=== PATIENT | male | born 1995 | race Asian ===

== ENCOUNTER 2017-05-19 00:40 | Inpatient (IN) | payer OTHER ==
[~2017-05-19] VITALS: Ht 170.2 cm; Wt 72.9 kg
[2017-05-19] VITALS (18 sets, daily range): BP systolic 100–147; BP diastolic 59–83; PULSE 65–88; TEMP 36.9–37.2; O2SAT 96–100; Ht 170.2 cm; Wt 72.9 kg
[2017-05-19] MEDS ORDERED: SODIUM CHLORIDE 0.9% 1000ML 1,000 ML IV STA (01:14)
[2017-05-19] MEDS ORDERED: ONDANSETRON INJ 2 MG/ML 2 ML VIAL IV STA (01:18)
[2017-05-19] MEDS ORDERED: OPTIRAY 320 IV PRN (01:30)
[2017-05-19 01:36] LABS: BASO % 0.6 %; BASO ABS # 0.04 K/uL (0-0.2); COMPLETE YES; EOS % 3.7 %; HEMATOCRIT 44.2 % (42-52); IG% 0.4 %; LYMPH % 31.3 %; LYMPH ABS # 2.27 K/uL (1.2-3.4); MEAN CELL VOLUME 82.6 fL (80-100); MEAN CORPUSCULAR HEMOGLOBIN 28.4 pg (25-34); MEAN CORPUSCULAR HGB CONC 34.4 g/dl (32-36); MEAN PLATELET VOLUME 9.2 fL (7.4-10.4); MONO % 6.2 %; NEUT % 57.8 %; PLATELET COUNT 251 K/uL (130-400); RED BLOOD COUNT 5.35 M/uL (4.7-6.1); WHITE BLOOD COUNT 7.25 K/uL (4.8-10.8)
[2017-05-19 01:52] LABS: BUN/CREATININE RATIO 12.1 (10-20); CREATININE 1.03 mg/dl (0.60-1.40); PARTIAL THROMBOPLASTIN RATIO 1.1; PROTHROMBIN TIME (PATIENT) 10.4 SECONDS (9.0-12.0)
--- NOTE | 2017-05-19 02:49 | EMERGENCY ROOM VISIT NOTE ---
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 Patient states he was studying and working for an exam when he went to the bathroom and strained and had a brown bowel movement with bright red blood. Since then he has had straight bloody episodes of liquid from his rectum. He's had a hemorrhoid before. No history of bleeding like this in the past. Patient is currently down pain as discomfort, 3 out of 10 to the lower abdomen. Patient feels nauseous. Patient denies chest pain, dyspnea , fever, chills, vomiting, back pain. No recent antibiotics. No recent travel. He goes to [facility]. Review of Systems See HPI for pertinent positives & negatives. A total of 10 systems reviewed and were otherwise negative. Past Medical/Surgical History None Social History Smoking Status: Never Smoker Smokeless Tobacco Use: No Alcohol Use: none Drug Use: none Occupation Status: [employer] student Current/Historical Medications No Active Prescriptions or Reported Meds Physical Exam Vital Signs Date Time Temp Pulse Resp B/P (MAP) Pulse Ox O2 Delivery O2 Flow Rate FiO2 05/19/17 02:33 76 16 132/86 134/71 133/79 05/19/17 01:25 99 Room Air 05/19/17 01:00 37.1 103 16 149/101 95 Room Air Physical Exam VITALS: Vitals are noted on the nurse's note and reviewed by myself. Vital signs stable. GENERAL: Pleasant male anxious-appearing, in no acute distress, nondiaphoretic, well-developed well-nourished. SKIN: The skin was without rashes, erythema, edema, or bruising. There is no tenting of the skin. Capillary reflex less than 2 seconds. HEAD: Normocephalic atraumatic. EARS: External auditory canals clear, tympanic membranes pearly peralta without erythema or effusion bilaterally. EYES: Pupils equal round and reactive to light and accommodation. Conjunctivae without injection, sclerae without icterus. Extraocular movements intact. NOSE: Patent, turbinates without inflammation or discharge. MOUTH: Mucous membranes moist. Pharynx without erythema or exudate. Uvula midline. Airway patent. Tongue does not deviate. NECK: Supple without nuchal rigidity. No lymphadenopathy. No thyromegaly. Cervical spine is nontender. No JVD. HEART: Regular rate and rhythm without murmurs gallops or rubs. LUNGS: Clear to auscultation bilaterally without wheezes, rales or rhonchi. No dullness to percussion. No retractions or accessory muscle use. ABDOMEN: Positive bowel sounds x 4. Normal tympanic percussion. Soft, tender to palpation lower abdomen, no CVA tenderness, without masses or organomegaly. Joy sign negative. No guarding or rebound tenderness. Rectal exam: Nonthrombosed hemorrhoid at 6:00, bright red blood. [employer] Developer present. No fissures or tears. MUSCULOSKELETAL: No muscle atrophy, erythema, or edema noted. NEURO: Patient was alert and oriented to person place and time. Normal sensation to light and sharp touch. No focal neurological deficits. Medical Decision & Procedures Laboratory Results 05/19/17 01:24 Red Blood Count 5.35, Mean Corpuscular Volume 82.6, Mean Corpuscular Hemoglobin 28.4, Mean Corpuscular Hemoglobin Concent 34.4, Mean Platelet Volume 9.2, Neutrophils (%) (Auto) 57.8, Lymphocytes (%) (Auto) 31.3, Monocytes (%) (Auto) 6.2, Eosinophils (%) (Auto) 3.7, Basophils (%) (Auto) 0.6, Neutrophils # (Auto) 4.19, Lymphocytes # (Auto) 2.27, Monocytes # (Auto) 0.45, Eosinophils # (Auto) 0.27, Basophils # (Auto) 0.04 05/19/17 01:24 Test 05/19/17 01:24 White Blood Count 7.25 K/uL (4.8-10.8) Red Blood Count 5.35 M/uL (4.7-6.1) Hemoglobin 15.2 g/dL (14.0-18.0) Hematocrit 44.2 % (42-52) Mean Corpuscular Volume 82.6 fL (80-100) Mean Corpuscular Hemoglobin 28.4 pg (25-34) Mean Corpuscular Hemoglobin Concent 34.4 g/dl (32-36) Platelet Count 251 K/uL (130-400) Mean Platelet Volume 9.2 fL (7.4-10.4) Neutrophils (%) (Auto) 57.8 % Lymphocytes (%) (Auto) 31.3 % Monocytes (%) (Auto) 6.2 % Eosinophils (%) (Auto) 3.7 % Basophils (%) (Auto) 0.6 % Neutrophils # (Auto) 4.19 K/uL (1.4-6.5) Lymphocytes # (Auto) 2.27 K/uL (1.2-3.4) Monocytes # (Auto) 0.45 K/uL (0.11-0.59) Eosinophils # (Auto) 0.27 K/uL (0-0.5) Basophils # (Auto) 0.04 K/uL (0-0.2) RDW Standard Deviation 37.2 fL (36.4-46.3) RDW Coefficient of Variation 12.5 % (11.5-14.5) Immature Granulocyte % (Auto) 0.4 % Immature Granulocyte # (Auto) 0.03 K/uL (0.00-0.02) Prothrombin Time 10.4 SECONDS (9.0-12.0) Prothromb Time International Ratio 1.0 (0.9-1.1) Activated Partial Thromboplast Time 28.5 SECONDS (21.0-31.0) Partial Thromboplastin Ratio 1.1 Anion Gap 10.0 mmol/L (3-11) Est Creatinine Clear Calc Drug Dose 104.3 ml/min Estimated GFR () 118.1 Estimated GFR (Non- 101.9 BUN/Creatinine Ratio 12.1 (10-20) Calcium Level 9.0 mg/dl (8.5-10.1) Total Bilirubin 1.4 mg/dl (0.2-1) Direct Bilirubin 0.2 mg/dl (0-0.2) Aspartate Amino Transf (AST/SGOT) 17 U/L (15-37) Alanine Aminotransferase (ALT/SGPT) 40 U/L (12-78) Alkaline Phosphatase 81 U/L (45-117) Total Protein 7.4 gm/dl (6.4-8.2) Albumin 4.4 gm/dl (3.4-5.0) Lipase 109 U/L (73-393) Medications Administered Medications (Trade) Dose Ordered Sig/Viktoria Route Start Time Stop Time Status Last Admin Dose Admin Sodium Chloride 1,000 ml @ 999 mls/hr Q1H1M STAT IV 05/19/17 01:14 05/19/17 02:14 DC 05/19/17 01:22 999 MLS/HR Ondansetron HCl (Zofran Inj) 4 mg NOW STAT IV 05/19/17 01:18 05/19/17 01:19 DC 05/19/17 01:22 4 MG ED Course Prior records/ancillary studies reviewed. Triage Nursing notes reviewed. Additional history obtained from the friends. The patient's history was concerning for possible gastrointestinal bleeding. Differential diagnosis: Etiologies such as diverticulosis, AVM, coagulopathy, colitis, inflammatory bowel disease, malignancy, Camila-Ivan tear, esophagitis, peptic ulcer disease , variceal bleed, gastritis, epistaxis, fissure, hemorrhoids, as well as others were entertained. Physical exam: As above. The patients vital signs were stable. ER treatment provided: LR Zofran On reassessment the patient felt better. Diagnostics interpreted by me: ECG: Normal sinus, normal intervals, T wave inversions in lead 3, normal axis, rate 85. Impression normal sinus rhythm interpreted by myself The labs revealed stable H&H. Blood bank O positive Imaging studies: CT the abdomen and pelvis was read by stat radiology and concerning for nonspecific fluid seen throughout the colon and rectum. Consultation: A consultation was placed with the [facility] resident, Dr. Beth, hospitalist. The case was discussed and diagnostics were reviewed. The patient was evaluated in the ER for further treatment. This appears to be consistent with rectal bleeding. Patient had multiple episodes of rectal bleeding while in the ER. Stool cultures are pending. He had no obvious fissures or tears. He will be evaluated by medicine for possible admission. By the evaluation outlined above emergent etiologies such as esophageal perforation, peptic ulcer disease, variceal bleed, coagulopathy, gastritis, epistaxis, as well as others were deemed relatively unlikely. The pt informed about the findings as listed above. All questions were answered and pleased with the treatment. Case reviewed with my attending Medical Decision as above Medication Reconcilliation Current Medication List: was personally reviewed by me Blood Pressure Screening Patient's blood pressure: Normal blood pressure Impression Primary Impression: Rectal bleeding Departure Information Dispostion Being Evaluated By Hospitalist Condition GOOD Prescriptions No Active Prescriptions or Reported Meds Referrals [facility] (PCP) Patient Instructions My [facility]
[2017-05-19 03:06] LABS: URINE APPEARANCE CLEAR (CLEAR); URINE BILIRUBIN NEG (NEG); URINE COLOR YELLOW; URINE NITRITE NEG (NEG); URINE SPECIFIC GRAVITY > 1.045 (1.000-1.030); UROBILINOGEN NEG (NEG); ZZUR CULT IF INDIC CLEAN CATCH NO
[2017-05-19 03:10] LABS: MANUAL MICROSCOPIC REQUIRED? NO; REVIEW REQ? NO
--- NOTE | 2017-05-19 04:01 | Medical Consult ---
Consultation Date of Consultation: May 19, 2017. Attending Physician: Dr Boyd Past Medical/Surgical History Medical Problems: (1) Rectal bleeding Status: Acute Social History Smoking Status: Never Smoker Smokeless Tobacco Use: No Drug Use: none Occupation Status: [employer] student Allergies Coded Allergies: No Known Allergies (Unverified , 05/19/17) Current Inpatient Medications Current Inpatient Medications Medications (Trade) Dose Ordered Sig/Viktoria Route Start Time Stop Time Status Last Admin Dose Admin Ioversol (Optiray 320) 100 ml UD PRN IV 05/19/17 01:30 05/23/17 01:29 Physical Exam Date Time Temp Pulse Resp B/P (MAP) Pulse Ox O2 Delivery O2 Flow Rate FiO2 05/19/17 03:49 85 16 140/74 96 Room Air 05/19/17 02:33 76 16 132/86 134/71 133/79 05/19/17 02:32 101 18 133/79 97 Room Air 05/19/17 02:00 88 05/19/17 01:25 99 Room Air 05/19/17 01:00 37.1 103 16 149/101 95 Room Air Laboratory Results Last 24 Hours Test 05/19/17 01:24 05/19/17 02:39 White Blood Count 7.25 K/uL Red Blood Count 5.35 M/uL Hemoglobin 15.2 g/dL Hematocrit 44.2 % Mean Corpuscular Volume 82.6 fL Mean Corpuscular Hemoglobin 28.4 pg Mean Corpuscular Hemoglobin Concent 34.4 g/dl Platelet Count 251 K/uL Mean Platelet Volume 9.2 fL Neutrophils (%) (Auto) 57.8 % Lymphocytes (%) (Auto) 31.3 % Monocytes (%) (Auto) 6.2 % Eosinophils (%) (Auto) 3.7 % Basophils (%) (Auto) 0.6 % Neutrophils # (Auto) 4.19 K/uL Lymphocytes # (Auto) 2.27 K/uL Monocytes # (Auto) 0.45 K/uL Eosinophils # (Auto) 0.27 K/uL Basophils # (Auto) 0.04 K/uL RDW Standard Deviation 37.2 fL RDW Coefficient of Variation 12.5 % Immature Granulocyte % (Auto) 0.4 % Immature Granulocyte # (Auto) 0.03 K/uL Prothrombin Time 10.4 SECONDS Prothromb Time International Ratio 1.0 Activated Partial Thromboplast Time 28.5 SECONDS Partial Thromboplastin Ratio 1.1 Sodium Level 142 mmol/L Potassium Level 4.0 mmol/L Chloride Level 108 mmol/L Carbon Dioxide Level 24 mmol/L Anion Gap 10.0 mmol/L Blood Urea Nitrogen 12 mg/dl Creatinine 1.03 mg/dl Est Creatinine Clear Calc Drug Dose 104.3 ml/min Estimated GFR () 118.1 Estimated GFR (Non- 101.9 BUN/Creatinine Ratio 12.1 Random Glucose 111 mg/dl Calcium Level 9.0 mg/dl Total Bilirubin 1.4 mg/dl Direct Bilirubin 0.2 mg/dl Aspartate Amino Transf (AST/SGOT) 17 U/L Alanine Aminotransferase (ALT/SGPT) 40 U/L Alkaline Phosphatase 81 U/L Total Protein 7.4 gm/dl Albumin 4.4 gm/dl Lipase 109 U/L Urine Color YELLOW Urine Appearance CLEAR Urine pH 5.0 Urine Specific [place] > 1.045 Urine Protein NEG Urine Glucose (UA) NEG Urine Ketones NEG Urine Occult Blood NEG Urine Nitrite NEG Urine Bilirubin NEG Urine Urobilinogen NEG Urine Leukocyte Esterase NEG
[2017-05-19 04:41] LABS: ISTAT CREATININE 0.9 mg/dl (0.6-1.3); ISTAT HEMOGLOBIN 11.2 g/dl (14.0-18.0); ISTAT IONIZED CALCIUM 1.2 mmol/l (1.12-1.32)
[2017-05-19 04:41] LABS: ISTAT HEMOGLOBIN 14.6 g/dl (14.0-18.0); ISTAT IONIZED CALCIUM 1.18 mmol/l (1.12-1.32)
[2017-05-19] MEDS ORDERED: LACTATED RINGER'S 1000ML 1,000 ML IV STA ×2 (04:47)
[2017-05-19] MEDS ORDERED: PANTOprazole INJ 80 MG in DEXTROSE 5% 100ML IV STA (04:57)
[2017-05-19] MEDS ORDERED: PANTOprazole INJ 40 MG in DEXTROSE 5% 100ML IV SCH (05:00)
--- NOTE | 2017-05-19 05:34 | History and Physical ---
History & Physical Date & Time of Service: May 19, 2017 at 05:34 Chief Complaint: Blood In Stool, Bleeding After Bowel Movement Primary Care Physician: [facility] [address] History of Present Illness Source: patient Mr Jurado is a 21 year old healthy male who presents to the ER with lower abdominal pain and bloody stool since 7pm last night. Initially he felt he had to have a bowel movement with some lower abdominal pain but he had some school work to finish so held on. Around 9pm he had a yulissa red blood bowel movement. When first seen he denied any fevers, chills, nausea, vomiting, chest pain, shortness of breath or dizziness. He denies any recent alcohol or vomiting episodes. He denies any recent NSAID use. He had a burrito from [employer] that night but report this is not unusual for him. He has been recently stressed with completing some coursework that was due today. He notes a previous history of hemorrhoids however this was a self diagnosis as he was having some constipation and noticed some yulissa blood around 6 months previously. This cleared up without any medications. He denies any family history of inflammatory bowel disease or GI or hematological problems. He was due to be discharged after medical consultation as his initial hemoglobin was 15.2 and most likely diagnosis of hemorrhoids (yulissa red blood). However he had another large blood bowel movement in the ER and subsequent POC Hgb showed he dropped from 14.6 to 11.2. He became hypotensive after this large bowel movement however this was associated with bradycardia rather than tachycardia. He was started on a Protonix drip and is currently receiving the first of 2 units of packed RBC. CT scan initially just reported liquid stool throughout the colon however final read also mentioned findings concerning for distal small bowel gastrointestinal hemorrhage - A potential polypoid focus along the small bowel wall is silhouetted by the extravasated intraluminal contrast raising concern for an underlying lesion. The ER discussed the case with the ICU (Horace DURHAM) ad [facility] (Dr Booth) who will be consulted. Physical examination recorded was before he became hypotensive in the ER. Past Medical/Surgical History None Family History T2DM Social History Smoking Status: Never Smoker Smokeless Tobacco Use: No Drug Use: none Occupational Status: [employer] student Immunizations History of Influenza Vaccine: Unknown History of Tetanus Vaccine?: Unknown History of Pneumococcal: Unknown History of Hepatitis B Vaccine: Unknown Multi-Drug Resistant Organisms History of MDRO: No Allergies Coded Allergies: No Known Allergies (Unverified , 05/22/17) Home Medications No Active Prescriptions or Reported Meds Review of Systems The patient denies chest pain, palpitations, shortness of breath, cough, lower extremity swelling, vision change, hearing change, sore throat, fevers, chills, sweats, weight change, fatigue, nausea, vomiting, diarrhea, blood in urine, dysuria, urinary frequency or urgency, lightheadedness, dizziness, headache, memory loss, loss of consciousness, rash, imbalance, focal or generalized weakness, numbness or tingling in arms or legs, generalized arthralgias or myalgias, back or neck pain, or night sweats. The review of systems is otherwise negative other than for that already noted above, and at least 10 systems have been reviewed. Physical Exam Vital Signs Date Time Temp Pulse Resp B/P (MAP) Pulse Ox O2 Delivery O2 Flow Rate FiO2 05/19/17 05:04 37.2 77 15 110/59 99 05/19/17 04:51 78 22 65/36 05/19/17 03:49 85 16 140/74 96 Room Air 05/19/17 02:33 76 16 132/86 134/71 133/79 05/19/17 02:32 101 18 133/79 97 Room Air 05/19/17 02:00 88 05/19/17 01:25 99 Room Air 05/19/17 01:00 37.1 103 16 149/101 95 Room Air General Appearance: WD/WN, no apparent distress Head: normocephalic, atraumatic Eyes: normal inspection, PERRL, EOMI ENT: normal ENT inspection, pharynx normal Neck: supple, no JVD Respiratory/Chest: chest non-tender, no respiratory distress, no accessory muscle use Cardiovascular: regular rate, rhythm, no edema, normal peripheral pulses Abdomen/GI: normal bowel sounds, non tender, soft Extremities/Musculoskelatal: no calf tenderness, normal capillary refill, no pedal edema Neurologic/Psych: 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 HEENT--PERRL, EOMI, mucous membranes and oropharynx normal. Neck--supple, no JVD or bruits, thyroid normal, trachea midline, no adenopathy. Heart--normal S1 and S2, no extra beats, no murmurs, rubs or gallops. Lungs--clear bilaterally with good air movement, no respiratory distress, no accessory muscle use. Abdomen--normal bowel sounds and soft, tender left lower quadrant and suprapubic area, nondistended, no hernias or masses, no organomegaly. Extremities--no cyanosis, clubbing or edema. There are good distal pulses b/l. Dermatologic--normal skin turgor, normal color, warm and dry, no abnormal lymph nodes, no rash. Neurologic--cranial nerves II through XII grossly intact. Rheumatologic--normal range of motion. Psychiatric--normal affect. Diagnostics Laboratory Results Results Past 24 Hours Test 05/19/17 01:21 05/19/17 01:24 05/19/17 02:39 05/19/17 04:17 Range/Units Bedside Hemoglobin 14.6 11.2 14.0-18.0 g/dl Bedside Hematocrit 43 33 42-52 % Bedside Sodium 143 144 135-144 mEq/L Bedside Potassium 4.0 4.3 3.3-5.0 mEq/L Bedside Chloride 105 106 101-112 mEq/L Bedside Total CO2 25 27 24-31 mEq/l Anion Gap 18.0 10.0 16.0 16-25 mmol/L Bedside Blood Urea Nitrogen 12 12 7-18 mg/dl Bedside Creatinine 1.0 0.9 0.6-1.3 mg/dl Bedside Glucose (other) 113 100 70-99 mg/dl Bedside Ionized Calcium (Jeremias) 1.18 1.20 1.12-1.32 mmol/l White Blood Count 7.25 4.8-10.8 K/uL Red Blood Count 5.35 4.7-6.1 M/uL Hemoglobin 15.2 14.0-18.0 g/dL Hematocrit 44.2 42-52 % Mean Corpuscular Volume 82.6 80-100 fL Mean Corpuscular Hemoglobin 28.4 25-34 pg Mean Corpuscular Hemoglobin Concent 34.4 32-36 g/dl Platelet Count 251 130-400 K/uL Mean Platelet Volume 9.2 7.4-10.4 fL Neutrophils (%) (Auto) 57.8 % Lymphocytes (%) (Auto) 31.3 % Monocytes (%) (Auto) 6.2 % Eosinophils (%) (Auto) 3.7 % Basophils (%) (Auto) 0.6 % Neutrophils # (Auto) 4.19 1.4-6.5 K/uL Lymphocytes # (Auto) 2.27 1.2-3.4 K/uL Monocytes # (Auto) 0.45 0.11-0.59 K/uL Eosinophils # (Auto) 0.27 0-0.5 K/uL Basophils # (Auto) 0.04 0-0.2 K/uL RDW Standard Deviation 37.2 36.4-46.3 fL RDW Coefficient of Variation 12.5 11.5-14.5 % Immature Granulocyte % (Auto) 0.4 % Immature Granulocyte # (Auto) 0.03 0.00-0.02 K/uL Prothrombin Time 10.4 9.0-12.0 SECONDS Prothromb Time International Ratio 1.0 0.9-1.1 Activated Partial Thromboplast Time 28.5 21.0-31.0 SECONDS Partial Thromboplastin Ratio 1.1 Sodium Level 142 136-145 mmol/L Potassium Level 4.0 3.5-5.1 mmol/L Chloride Level 108 98-107 mmol/L Carbon Dioxide Level 24 21-32 mmol/L Blood Urea Nitrogen 12 7-18 mg/dl Creatinine 1.03 0.60-1.40 mg/dl Est Creatinine Clear Calc Drug Dose 104.3 ml/min Estimated GFR () 118.1 Estimated GFR (Non- 101.9 BUN/Creatinine Ratio 12.1 10-20 Random Glucose 111 70-99 mg/dl Calcium Level 9.0 8.5-10.1 mg/dl Total Bilirubin 1.4 0.2-1 mg/dl Direct Bilirubin 0.2 0-0.2 mg/dl Aspartate Amino Transf (AST/SGOT) 17 15-37 U/L Alanine Aminotransferase (ALT/SGPT) 40 12-78 U/L Alkaline Phosphatase 81 45-117 U/L Total Protein 7.4 6.4-8.2 gm/dl Albumin 4.4 3.4-5.0 gm/dl Lipase 109 73-393 U/L Urine Color YELLOW Urine Appearance CLEAR CLEAR Urine pH 5.0 4.5-7.5 Urine Specific [place] > 1.045 1.000-1.030 Urine Protein NEG NEG Urine Glucose (UA) NEG NEG Urine Ketones NEG NEG Urine Occult Blood NEG NEG Urine Nitrite NEG NEG Urine Bilirubin NEG NEG Urine Urobilinogen NEG NEG Urine Leukocyte Esterase NEG NEG Microbiology Results 05/19/17 C.difficile Toxin B Gene (PCR) - Final, Complete No C. difficile toxin B gene detected 05/19/17 Shiga Toxin Test, Received Pending 05/19/17 Stool Culture, Received Pending Diagnostic Radiology CT of abdomen and pelvis read by stat read as showing diffuse fluid throughout the colon, with no signs of obstruction or ileus, and no other lesions noted. Impression Assessment and Plan 21 year old male with bright red rectal bleeding. Hypotension and bradycardia in the ER likely vasovagal after having a bowel movement however given rapid decline in Hgb he will be admitted to the ICU for close monitoring. Presumed lower GI bleed - given Hgb drop (POC 14.5 -> 10.5 suspect AVM) - 2 units blood transfusion and recheck H&H and trend - PPI drip and octreotide incase of upper GI bleed with rapid transit - stool cultures pending - c. diff negative - consult presales senior specialist for ICU management - his HR and BP are stable at this time and he is not requiring vasopressor support - consult GI - ER discussed with Dr Booth Hypotension - suspect vasovagal after given association with bradycardia and rapid resolution however he will be monitored in the ICU and will be given 2 units of packed RBC as above Attending addendum: I have physically seen this patient, have supervised the medical residents activities, and agree with the H&P unless as otherwise noted. Assessment and Plan: Lower GI bleed/bright red blood per rectum/episode of hypotension-- Patient be admitted to the ICU. The patient reports being told by someone his bleeding was related to internal hemorrhoids. Volume of blood is more consistent with either an AVM or some form of polypoid lesion. 2 units of packed red blood cells have been ordered by the ED. H&H every 6 hours. C. difficile study is negative Stool cultures pending Pantoprazole infusion and octreotide infusion. Start levo fed infusion blood pressure drops again. Consult for presales senior specialist has been placed. Polytechnic Teacher television tube inspector Dr. Booth has been made aware of the patient by emergency department staff. Level of Care Critical Care Advanced Directives Existing Advance Directive: No Existing Living Will: No Existing Power of Bulb Packer: No Resuscitation Status FULL RESUSCITATION VTE Prophylaxis VTE Risk Assessment Done? Y/N: Yes Risk Level: Very Low Given or contraindicated: SCD's, Contraindicated Social Service Consult None Apply
[2017-05-19] MEDS ORDERED: OCTREOTIDE IV BOLUS & DRIP IV STA (05:51)
[2017-05-19 06:04] LABS: ISTAT CREATININE 1.1 mg/dl (0.6-1.3); ISTAT HEMOGLOBIN 10.5 g/dl (14.0-18.0); ISTAT IONIZED CALCIUM 1.12 mmol/l (1.12-1.32)
[2017-05-19] MEDS ORDERED: OCTREOTIDE BOLUS FROM BAG IV STA (06:14)
[2017-05-19] MEDS ORDERED: OCTREOTIDE ACETATE INJ 500 MCG in NSS 100ML IV SCH (06:15)
--- NOTE | 2017-05-19 06:31 | Critical Care Consultation ---
Critical Care Consultation Date of Consultation: May 19, 2017. Reason for Consultation: 21-year-old male with acute onset of melanotic diarrheal stools resulting in moderate drop in H&H and orthostatic hypotension requiring replacement with blood transfusion. History of Present Illness Patient is a 21-year-old [employer] student who presented to the emergency department this evening after an acute onset of multiple episodes of bloody diarrhea. He reports that he developed the sensation of urgency for bowel movement at approximate 7 PM, and by 9 PM, he had had his first bloody bowel movement. He reports that he since had multiple diarrheal bowel movements which have all consisted primarily of blood. He does associate the urge to move his bowels, but denies any significant pain otherwise. On initial assessment in the emergency department, he was found to have an H&H of 15.2 and 44.2. He was hydrated with lactated Ringer's and normal saline. During his stay, however, the patient had multiple bloody bowel movements which was certainly concerning to staff. A repeat H&H was obtained, and in the interim, the patient had an episode of orthostasis with a systolic blood pressure in the 60s. The patient became severely lightheaded and nearly passed out. His repeat H&H had dropped to 11.2 and 33, respectively. Patient had been started on a drip and bolus of Protonix. He has [address] abdomen and pelvis demonstrated no significant findings otherwise. On evaluation, the patient is laying flat on the litter. He reports that he takes no daily medications. There is been no recent NSAID use. He reports that he rarely drinks alcohol. He does not smoke. He reports no prior history of GI bleeds. He does admit that he eats a significant amount of spicy food. He reports that approximately 1.5-2 weeks ago the patient had ongoing sensation of "acid" in his stomach. He took no medications or [id number] interventions for this. The symptoms did seem to resolve. The patient has had no vomiting. There is been no black/tarry stools. He denies any previous abdominal surgeries. Patient last had a meal last evening which was a burrito from [employer]. He denies any recent long distance travel, consumption of raw /undercooked foods, recent antibiotic use, or drinking from poor water sources. He denies any receptive rectal penetration. There is no family history of bleeding dyscrasias. He denies any chest pain, palpitations, shortness of breath, nausea, coffee-ground emesis, hematemesis, headaches, fevers, chills, or recent illnesses. Past Medical/Surgical History No known Past Medical History No Prior Surgical History Family History Noncontributory Social History Smoking Status: Never Smoker Smokeless Tobacco Use: No Alcohol Use: occasionally Drug Use: none Marital Status: single Housing Status: lives with roommate Occupation Status: [employer] student Allergies Coded Allergies: No Known Allergies (Unverified , 05/19/17) Home Medications No Active Prescriptions or Reported Meds Current Inpatient Medications Current Inpatient Medications Medications (Trade) Dose Ordered Sig/Viktoria Route Start Time Stop Time Status Last Admin Dose Admin Ioversol (Optiray 320) 100 ml UD PRN IV 05/19/17 01:30 05/23/17 01:29 Pantoprazole Sodium 40 mg/ Dextrose 100 ml @ 20 mls/hr Q5H IV 05/19/17 05:00 05/19/17 09:59 05/19/17 05:15 20 MLS/HR Octreotide Acetate (Sandostatin Iv Bolus & Drip) 1 ea NOW STAT IV 05/19/17 05:51 05/19/17 05:52 UNV Review of Systems A complete 10-point Review of Systems was discussed with the patient, with pertinent positives and negatives listed in the History of Present Illness. All remaining Review of Systems questions can be considered negative unless otherwise specified. Physical Exam Date Time Temp Pulse Resp B/P (MAP) Pulse Ox O2 Delivery O2 Flow Rate FiO2 05/19/17 05:41 37.0 83 16 103/61 100 05/19/17 05:20 37.2 73 16 100/61 99 05/19/17 05:04 37.2 77 15 110/59 99 05/19/17 04:51 78 22 65/36 05/19/17 03:49 85 16 140/74 96 Room Air 05/19/17 02:33 76 16 132/86 134/71 133/79 05/19/17 02:32 101 18 133/79 97 Room Air 05/19/17 02:00 88 05/19/17 01:25 99 Room Air 05/19/17 01:00 37.1 103 16 149/101 95 Room Air VITAL SIGNS - Vital signs and nursing notes were reviewed. GENERAL - 21-year-old Male appearing his stated age who is in no acute distress. Communicates well with provider and answers questions appropriately. HEAD - NC/AT. EYES - Palpebral conjunctiva pink and moist with no injection noted. MOUTH/OROPHARYNX - Without perioral cyanosis. Buccal mucosa pink and moist and without leukoplakia. Tongue midline with equal elevation of palate bilaterally. No tonsillar hypertrophy, erythema, or exudates noted. Good dentition noted. NECK - Neck with FROM. Supple to palpation. No nuchal rigidity. LUNGS - Chest wall symmetric without accessory muscle use, intercostals retractions, or central cyanosis. Normal vesicular breath sounds CTA B/L. No wheezes, rales, or rhonchi appreciated. CARDIAC - RRR with S1/S2. No murmur, rubs, or gallops appreciated. ABDOMEN - Abdominal contour flat and without pulsations or visible masses. Negative Irwin's or Pizarro Samuel's Signs. BS Hyperactive normoactive all four quadrants. No tenderness to palpation appreciated throughout. No guarding. No Rebound Tenderness. Negative Rovsing's. Negative Joy's. No palpable masses, hepatosplenomegaly, or ascites noted. RECTAL - No rectal fissures. No skin tags appreciated. Dried red blood noted surrounding the entire rectum. No active bleeding. Hemoccult reported as POSITIVE per ED Staff. Consistent with patient's exam. EXTREMITIES - No clubbing or peripheral cyanosis. No pretibial edema present. +3 /5 radial and dorsalis pedis pulses palpated throughout. PSYCH - A&Ox3 and cooperates fully with examiner. Pt is very pleasant and interacts well with examiner. Laboratory Results Last 24 Hours Test 05/19/17 01:21 05/19/17 01:24 05/19/17 02:39 05/19/17 04:17 Bedside Hemoglobin 14.6 g/dl 11.2 g/dl Bedside Hematocrit 43 % 33 % Bedside Sodium 143 mEq/L 144 mEq/L Bedside Potassium 4.0 mEq/L 4.3 mEq/L Bedside Chloride 105 mEq/L 106 mEq/L Bedside Total CO2 25 mEq/l 27 mEq/l Anion Gap 18.0 mmol/L 10.0 mmol/L 16.0 mmol/L Bedside Blood Urea Nitrogen 12 mg/dl 12 mg/dl Bedside Creatinine 1.0 mg/dl 0.9 mg/dl Bedside Glucose (other) 113 mg/dl 100 mg/dl Bedside Ionized Calcium (Jeremias) 1.18 mmol/l 1.20 mmol/l White Blood Count 7.25 K/uL Red Blood Count 5.35 M/uL Hemoglobin 15.2 g/dL Hematocrit 44.2 % Mean Corpuscular Volume 82.6 fL Mean Corpuscular Hemoglobin 28.4 pg Mean Corpuscular Hemoglobin Concent 34.4 g/dl Platelet Count 251 K/uL Mean Platelet Volume 9.2 fL Neutrophils (%) (Auto) 57.8 % Lymphocytes (%) (Auto) 31.3 % Monocytes (%) (Auto) 6.2 % Eosinophils (%) (Auto) 3.7 % Basophils (%) (Auto) 0.6 % Neutrophils # (Auto) 4.19 K/uL Lymphocytes # (Auto) 2.27 K/uL Monocytes # (Auto) 0.45 K/uL Eosinophils # (Auto) 0.27 K/uL Basophils # (Auto) 0.04 K/uL RDW Standard Deviation 37.2 fL RDW Coefficient of Variation 12.5 % Immature Granulocyte % (Auto) 0.4 % Immature Granulocyte # (Auto) 0.03 K/uL Prothrombin Time 10.4 SECONDS Prothromb Time International Ratio 1.0 Activated Partial Thromboplast Time 28.5 SECONDS Partial Thromboplastin Ratio 1.1 Sodium Level 142 mmol/L Potassium Level 4.0 mmol/L Chloride Level 108 mmol/L Carbon Dioxide Level 24 mmol/L Blood Urea Nitrogen 12 mg/dl Creatinine 1.03 mg/dl Est Creatinine Clear Calc Drug Dose 104.3 ml/min Estimated GFR () 118.1 Estimated GFR (Non- 101.9 BUN/Creatinine Ratio 12.1 Random Glucose 111 mg/dl Calcium Level 9.0 mg/dl Total Bilirubin 1.4 mg/dl Direct Bilirubin 0.2 mg/dl Aspartate Amino Transf (AST/SGOT) 17 U/L Alanine Aminotransferase (ALT/SGPT) 40 U/L Alkaline Phosphatase 81 U/L Total Protein 7.4 gm/dl Albumin 4.4 gm/dl Lipase 109 U/L Urine Color YELLOW Urine Appearance CLEAR Urine pH 5.0 Urine Specific [place] > 1.045 Urine Protein NEG Urine Glucose (UA) NEG Urine Ketones NEG Urine Occult Blood NEG Urine Nitrite NEG Urine Bilirubin NEG Urine Urobilinogen NEG Urine Leukocyte Esterase NEG Test 05/19/17 05:51 05/19/17 05:54 Diagnostic Results Radiological imaging and reports were reviewed by myself. Radiologist's Interpretation per [facility] as follows: CT ABDOMEN & PELVIS With Contrast: Lower thorax is unremarkable. Question gallstones or sludge. No CT evidence of acute cholecystitis. Liver, spleen, pancreas and adrenal glands are unremarkable. Kidneys, ureters and urinary bladder are unremarkable. Appendix is unremarkable. Nonspecific fluid is seen throughout the colon and rectum. No bowel wall thickening or agitation stranding. No free fluid. No free air. No acute osseous abnormality. Assessment & Plan (1) Bright red blood per rectum (2) Blood loss (3) Bloody diarrhea (4) Pre-syncope (5) Orthostatic hypotension (6) GI bleeding Reason Critically Ill: 21-year-old male with acute onset of melanotic diarrheal stools resulting in moderate drop in H&H and orthostatic hypotension requiring replacement with blood transfusion. Neuro - * CAM ICU: NEGATIVE Cardiac - * No h/o cardiac disease. * Orthostatic hypotension in the setting of acute blood loss. * Monitor on telemetry. * EKGs for any chest pain. Respiratory - * No history of pulmonary disease. * Supplemental O2 as needed. * Continuous pulse oximetry. GI - * Gastrointestinal Bleeding - Presumed Lower GI Source: * Multiple bloody bowel movements with a moderate drop in H&H and episode of orthostatic hypotension. * No immediate intervention suggested by GI per ED provider. * Currently on Protonix gtt s/p bolus. * Will add Octreotide gtt and bolus while scope pending in the event of a brisk upper GIB. Patient does describe s/s over the past few weeks of PUD w/o treatment. * C. diff NEGATIVE. * Stool cultures pending. Will wait for shigella tox results in the setting of bloody diarrhea. * Avoid Abx at this time. CT does not suggest colitis. Inflammatory bowel disease unlikely per negative CT. * Will add lactic acid. No pain or history to suggest ischemia. * Appreciate GI consultation and recommendations. RENAL/LYTES - * Will monitor electrolytes - replace appropriately. * Will add Normosol at 100mL/hr while NPO. - * Voiding independently. * Strict I&Os. ENDO - * No h/o DM or Thyroid Disease. * Will monitor BSGs and address appropriately. HEME - * Rapid drop in H&H in the setting of GIB: * Received 2U PRBCs in the setting of ??symptoms of orthostasis. * Continue to repeat H&Hs q4h. * Trend H&H - transfuse as needed. * Stable platelet count. * No hemolysis, thrombocytopenia, or DILLAN to suggest HUS. * No FHx of bleeding dyscrasias. ID - * C. diff NEGATIVE. * Waiting for remaining stool cultures. * Will hold Abx as no colitis noted on CT and no cultures in hand in the setting of blooding diarrhea. LINES/IV ACCESS - * 3 PIVs intact. DVT PROPHYLAXIS - * SCDs. * Chemical prophylaxis contraindicated in the situation 2/2 GIB. I have personally spent 35 minutes of critical care time in the direct management of this patient. This is a life/limb threatening event. This includes time spent evaluating patient, direct bedside care, chart review, placing orders, interpretation of diagnostic studies, discussion with consultants, patient, and family members, as well as other required patient management activities. This time is exclusive of all separately billable procedures, and teaching time and separate from and in addition to any other critical care service time. Thank you for this consultation allow us to be part of this patient's care. Please refer to my attending physician's documentation for any further recommendations. Physician Supervision Note: I was present with Horace Orourke PA-C during the history and exam. I discussed the case with the resident and agree with the findings and plan as documented in the note. Any exceptions or clarifications are listed here: 21 year-old previously healthy male presents with GI bleeding, most likely lower. Now receiving the second unit of PRBC. Remains hemodynamically stable, no further bleeding while in the ICU Diagnosis: Lower GI bleeding Hemorrhagic anemia Plan: Monitor CBC every 4 hours, transfuse as needed CT report amended by the radiologist, may have an area of contrast extravasation in the distal small bowel, with presence of a polypoid lesion. To obtain MR enterography today Eventual colonoscopy. Given the new information on CT scan, I don;t think there is a role for octreotide at this point, will discontinue it. NPO for now GI following Documented By: Alvaro Pompa MD Problem Qualifiers (1) GI bleeding: GI bleed type/associated pathology: unspecified gastrointestinal hemorrhage type Qualified Codes: K92.2 - Gastrointestinal hemorrhage, unspecified
--- NOTE | 2017-05-19 08:22 | DIAGNOSTIC IMAGING REPORT ---
ABD/PELVIS IV CONTRAST ONLY CLINICAL HISTORY: 21 years-old Male presenting with GI bleed and lower abd pain. TECHNIQUE: Multidetector CT of the abdomen and pelvis was performed after the administration of intravenous contrast. IV contrast: 93 mL of Optiray 320. A dose lowering technique was used consistent with the principles of ALARA (as low as reasonably achievable). COMPARISON: None. CT DOSE (mGy.cm): The estimated cumulative dose is 303.89 mGy.cm. FINDINGS: [employer] Supervisor topogram: Unremarkable. Lung bases: Lung bases clear. Normal heart size. No pericardial or pleural effusion. Liver: Normal morphology. Density suggestive of hepatic steatosis. Patent hepatic vasculature. Biliary: No intrahepatic or extrahepatic biliary ductal dilatation. Normal gallbladder. Pancreas: Normal. Spleen: Normal. Splenules noted. Adrenal glands: Normal. Kidneys and ureters: Normal. No hydronephrosis. Bladder: Normal. Pelvic organs: Prostate and seminal vesicles normal. Bowel: Hyperdense material noted within the distal small bowel with a potential polypoid focus along the small bowel wall is silhouetted by the presumed extravasated intraluminal IV contrast (series 3 image 271). This polypoid focus measures 1.8 x 0.9 cm. Normal appendix. No bowel obstruction. Peritoneal cavity: No free fluid or intraperitoneal gas. Lymph nodes: No enlarged lymph nodes in the abdomen or pelvis. Vasculature: Aorta and IVC patent and normal in caliber. Abdominal wall: Normal. Musculoskeletal: Normal. IMPRESSION: 1. Findings concerning for distal small bowel gastrointestinal hemorrhage. A potential polypoid focus along the small bowel wall is silhouetted by the extravasated intraluminal contrast. This raises concern for an underlying lesion. Further evaluation with capsule endoscopy versus CT or MR enterography. The report will be called/faxed according to standard departmental protocol. Electronically signed by: Saul Pérez M.D. 05/19/2017 8:21 AM Dictated Date/Time: 05/19/2017 7:08 AM
--- NOTE | 2017-05-19 10:27 | Gastrointestinal Consultation ---
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 He became dizzy and had a syncopal episode at home. He presented to the ED and was found to be significantly hypotensive and admitted to the ICU. He reports 7-8 total episodes overnight, the last being about 4am this morning. He reports mild diffuse abdominal discomfort but denies any actual abdominal pain. He has no n/ v or heartburn. He denies any NSAID use or significant ETOH use. The stool color is brown. He takes no home medications. Blood work showed a drop in hgb from 15.2 - 10.5. He is currently receiving his second unit of blood. He has never had endoscopic evaluation and there is no known family hx of GI issues to his knowledge. He is currently on octreotide as well as a PPI drip. CT scan a/p shows: IMPRESSION: 1. Findings concerning for distal small bowel gastrointestinal hemorrhage. A potential polypoid focus along the small bowel wall is silhouetted by the extravasated intraluminal contrast. This raises concern for an underlying lesion. Further evaluation with capsule endoscopy versus CT or MR enterography. Past Medical/Surgical History Medical Problems: (1) Blood loss Status: Acute (2) Bloody diarrhea Status: Acute (3) Bright red blood per rectum Status: Acute (4) GI bleeding Status: Acute (5) Orthostatic hypotension Status: Acute (6) Pre-syncope Status: Acute (7) Rectal bleeding Status: Acute Past Medical History: None Past Surgical History: None Social History Smoking Status: Former Smoker Alcohol Use: none Drug Use: none Marital Status: single Housing Status: lives with roommate Occupation Status: [employer] student Allergies Coded Allergies: No Known Allergies (Unverified , 05/19/17) Current Medications Home Meds and Scripts Medications Dose Route/Sig Max Daily Dose Days Date Category No Active Prescriptions or Reported Medications Rx Review of Systems Constitutional: No fever, No chills Eyes: No worsening of vision, No eye pain ENT: No hearing loss Respiratory: No cough, No wheezing, No shortness of breath Cardiac: No chest pain Abdomen: + see HPI Musculoskeletal: No joint pain, No muscle pain Male : No dysuria, No urinary frequency, No incontinence Neuro: No problem reported Psych: No problem reported Endo: No excessive thirst, No excessive urination Skin: No rash, No itch Physical Exam Date Time Temp Pulse Resp B/P (MAP) Pulse Ox O2 Delivery O2 Flow Rate FiO2 05/19/17 08:15 83 16 117/63 (81) 99 05/19/17 08:00 Room Air 05/19/17 07:48 37.0 88 16 118/62 (80) 99 Room Air 05/19/17 07:33 37.0 70 14 110/63 98 05/19/17 06:56 37.0 84 18 130/79 99 Room Air 05/19/17 06:40 37.1 82 21 122/75 99 05/19/17 06:10 37.0 84 18 130/79 99 05/19/17 06:00 37.0 83 22 101/57 99 05/19/17 05:55 83 22 101/57 99 Room Air 05/19/17 05:50 78 22 107/57 99 Room Air 05/19/17 05:45 79 27 104/60 100 Room Air 05/19/17 05:41 37.0 83 16 103/61 100 05/19/17 05:41 83 19 103/61 100 Room Air 05/19/17 05:35 82 27 112/68 100 Room Air 05/19/17 05:30 84 17 112/71 100 Room Air 05/19/17 05:25 77 15 101/64 99 Room Air 05/19/17 05:20 37.2 73 16 100/61 99 05/19/17 05:20 73 22 100/61 100 Room Air 05/19/17 05:15 76 24 108/66 99 Room Air 05/19/17 05:10 79 18 107/63 100 Room Air 05/19/17 05:05 78 20 102/68 100 Room Air 05/19/17 05:04 37.2 77 15 110/59 99 05/19/17 05:00 77 23 110/59 Room Air 05/19/17 04:55 73 18 102/68 Room Air 05/19/17 04:51 78 22 65/36 05/19/17 03:49 85 16 140/74 96 Room Air 05/19/17 02:33 76 16 132/86 134/71 133/79 05/19/17 02:32 101 18 133/79 97 Room Air 05/19/17 02:00 88 05/19/17 01:25 99 Room Air 05/19/17 01:00 37.1 103 16 149/101 95 Room Air General Appearance: no apparent distress Eyes: normal inspection ENT: hearing grossly normal Neck: supple Respiratory/Chest: lungs clear, normal breath sounds Cardiovascular: regular rate, rhythm, no edema Abdomen: normal bowel sounds, soft, + tenderness (mild, diffuse) Extremities: no pedal edema Neurologic/Psych: alert Skin: normal color, no jaundice, warm/dry Laboratory Results Last 24 Hours Test 05/19/17 01:21 05/19/17 01:24 05/19/17 02:39 05/19/17 04:17 Bedside Hemoglobin 14.6 g/dl 11.2 g/dl Bedside Hematocrit 43 % 33 % Bedside Sodium 143 mEq/L 144 mEq/L Bedside Potassium 4.0 mEq/L 4.3 mEq/L Bedside Chloride 105 mEq/L 106 mEq/L Bedside Total CO2 25 mEq/l 27 mEq/l Anion Gap 18.0 mmol/L 10.0 mmol/L 16.0 mmol/L Bedside Blood Urea Nitrogen 12 mg/dl 12 mg/dl Bedside Creatinine 1.0 mg/dl 0.9 mg/dl Bedside Glucose (other) 113 mg/dl 100 mg/dl Bedside Ionized Calcium (Jeremias) 1.18 mmol/l 1.20 mmol/l White Blood Count 7.25 K/uL Red Blood Count 5.35 M/uL Hemoglobin 15.2 g/dL Hematocrit 44.2 % Mean Corpuscular Volume 82.6 fL Mean Corpuscular Hemoglobin 28.4 pg Mean Corpuscular Hemoglobin Concent 34.4 g/dl Platelet Count 251 K/uL Mean Platelet Volume 9.2 fL Neutrophils (%) (Auto) 57.8 % Lymphocytes (%) (Auto) 31.3 % Monocytes (%) (Auto) 6.2 % Eosinophils (%) (Auto) 3.7 % Basophils (%) (Auto) 0.6 % Neutrophils # (Auto) 4.19 K/uL Lymphocytes # (Auto) 2.27 K/uL Monocytes # (Auto) 0.45 K/uL Eosinophils # (Auto) 0.27 K/uL Basophils # (Auto) 0.04 K/uL RDW Standard Deviation 37.2 fL RDW Coefficient of Variation 12.5 % Immature Granulocyte % (Auto) 0.4 % Immature Granulocyte # (Auto) 0.03 K/uL Prothrombin Time 10.4 SECONDS Prothromb Time International Ratio 1.0 Activated Partial Thromboplast Time 28.5 SECONDS Partial Thromboplastin Ratio 1.1 Sodium Level 142 mmol/L Potassium Level 4.0 mmol/L Chloride Level 108 mmol/L Carbon Dioxide Level 24 mmol/L Blood Urea Nitrogen 12 mg/dl Creatinine 1.03 mg/dl Est Creatinine Clear Calc Drug Dose 104.3 ml/min Estimated GFR () 118.1 Estimated GFR (Non- 101.9 BUN/Creatinine Ratio 12.1 Random Glucose 111 mg/dl Calcium Level 9.0 mg/dl Total Bilirubin 1.4 mg/dl Direct Bilirubin 0.2 mg/dl Aspartate Amino Transf (AST/SGOT) 17 U/L Alanine Aminotransferase (ALT/SGPT) 40 U/L Alkaline Phosphatase 81 U/L Total Protein 7.4 gm/dl Albumin 4.4 gm/dl Lipase 109 U/L Urine Color YELLOW Urine Appearance CLEAR Urine pH 5.0 Urine Specific [place] > 1.045 Urine Protein NEG Urine Glucose (UA) NEG Urine Ketones NEG Urine Occult Blood NEG Urine Nitrite NEG Urine Bilirubin NEG Urine Urobilinogen NEG Urine Leukocyte Esterase NEG Test 05/19/17 04:54 05/19/17 06:00 05/19/17 08:00 05/19/17 08:30 Bedside Hemoglobin 10.5 g/dl Bedside Hematocrit 31 % Bedside Sodium 143 mEq/L Bedside Potassium 4.2 mEq/L Bedside Chloride 107 mEq/L Bedside Total CO2 22 mEq/l Anion Gap 19.0 mmol/L Bedside Blood Urea Nitrogen 12 mg/dl Bedside Creatinine 1.1 mg/dl Bedside Glucose (other) 131 mg/dl Bedside Ionized Calcium (Jeremias) 1.12 mmol/l Lactic Acid Level 1.6 mmol/L Impression Patient is a 21 year old male with rectal bleeding and imaging concerning for a lesion in the distal small bowel. Plan We recommend obtaining an MR enterography to better delineate the small bowel lesion. Monitor blood counts closely and transfuse further if needed. Would continue PPI drip. Will d/w attending. Clears only. I performed a history and physical examination of the patient. I have discussed the patient's case, impression and plan with Ruba Manzano PA-C. Her note reflects my findings and plan. Doubt lesion can be reached by colonoscopy. MRE will help further locate and delineate lesion. Meckel's diverticulum is also in the differential diagnosis. If aggressive rebleeding occurs, patient may be to go to an institution with availability of IR/angiography. Tc Leon MD
--- NOTE | 2017-05-19 11:10 | Family Medicine Progress Note ---
Progress Note Date of Service May 19, 2017. Subjective Pt evaluation today including: conversation w/ patient, physical exam, chart review, lab review, conversation w/ [facility] consultant, review of inpatient medication list Pain: mild abdominal discomfort PO Intake: NPO Voiding: no voiding problems Patient still with mild abdominal discomfort Feels that he needs to use the toilet No nausea, vomiting, fevers or chills Also has a mild headache Constitutional: No fever, No chills, No sweats Respiratory: No cough, No sputum, No shortness of breath Cardiovascular: No chest pain, No edema, No palpitations Abdomen: + pain, + GI bleeding, No nausea, No vomiting Male : No dysuria, No urinary frequency Heme: + abnormal bleeding/bruising Endo: + fatigue Medications Current Inpatient Medications Medications (Trade) Dose Ordered Sig/Viktoria Route Start Time Stop Time Status Last Admin Dose Admin Ioversol (Optiray 320) 100 ml UD PRN IV 05/19/17 01:30 05/23/17 01:29 Parenteral Electrolyte Solution 1,000 ml @ 100 mls/hr Q10H IV 05/19/17 06:45 06/18/17 06:44 Pantoprazole Sodium 40 mg/ Dextrose 100 ml @ 20 mls/hr Q5H IV 05/19/17 10:30 06/18/17 10:29 Objective Vital Signs Date Time Temp Pulse Resp B/P (MAP) Pulse Ox O2 Delivery O2 Flow Rate FiO2 05/19/17 08:15 83 16 117/63 (81) 99 05/19/17 08:00 Room Air 05/19/17 07:48 37.0 88 16 118/62 (80) 99 Room Air 05/19/17 07:33 37.0 70 14 110/63 98 05/19/17 06:56 37.0 84 18 130/79 99 Room Air 05/19/17 06:40 37.1 82 21 122/75 99 05/19/17 06:10 37.0 84 18 130/79 99 05/19/17 06:00 37.0 83 22 101/57 99 05/19/17 05:55 83 22 101/57 99 Room Air 05/19/17 05:50 78 22 107/57 99 Room Air 05/19/17 05:45 79 27 104/60 100 Room Air 05/19/17 05:41 37.0 83 16 103/61 100 05/19/17 05:41 83 19 103/61 100 Room Air 05/19/17 05:35 82 27 112/68 100 Room Air 05/19/17 05:30 84 17 112/71 100 Room Air 05/19/17 05:25 77 15 101/64 99 Room Air 05/19/17 05:20 37.2 73 16 100/61 99 05/19/17 05:20 73 22 100/61 100 Room Air 05/19/17 05:15 76 24 108/66 99 Room Air 05/19/17 05:10 79 18 107/63 100 Room Air 05/19/17 05:05 78 20 102/68 100 Room Air 05/19/17 05:04 37.2 77 15 110/59 99 05/19/17 05:00 77 23 110/59 Room Air 05/19/17 04:55 73 18 102/68 Room Air 05/19/17 04:51 78 22 65/36 05/19/17 03:49 85 16 140/74 96 Room Air 05/19/17 02:33 76 16 132/86 134/71 133/79 05/19/17 02:32 101 18 133/79 97 Room Air 05/19/17 02:00 88 05/19/17 01:25 99 Room Air 05/19/17 01:00 37.1 103 16 149/101 95 Room Air Physical Exam General Appearance: WD/WN, no apparent distress ENT: hearing grossly normal, pharynx normal Respiratory/Chest: lungs clear, no respiratory distress, no accessory muscle use Cardiovascular: regular rate, rhythm, no JVD, no murmur Abdomen: normal bowel sounds, soft, + tenderness (very mild tenderness) Extremities: non-tender, no pedal edema, no calf tenderness, normal capillary refill Neurologic/Psychiatric: alert, normal mood/affect, oriented x 3 Skin: normal color, warm/dry, no rash Laboratory Results Results Past 24 Hours Test 05/19/17 01:21 05/19/17 01:24 05/19/17 02:39 05/19/17 04:17 Range/Units Bedside Hemoglobin 14.6 11.2 14.0-18.0 g/dl Bedside Hematocrit 43 33 42-52 % Bedside Sodium 143 144 135-144 mEq/L Bedside Potassium 4.0 4.3 3.3-5.0 mEq/L Bedside Chloride 105 106 101-112 mEq/L Bedside Total CO2 25 27 24-31 mEq/l Anion Gap 18.0 10.0 16.0 16-25 mmol/L Bedside Blood Urea Nitrogen 12 12 7-18 mg/dl Bedside Creatinine 1.0 0.9 0.6-1.3 mg/dl Bedside Glucose (other) 113 100 70-99 mg/dl Bedside Ionized Calcium (Jeremias) 1.18 1.20 1.12-1.32 mmol/l White Blood Count 7.25 4.8-10.8 K/uL Red Blood Count 5.35 4.7-6.1 M/uL Hemoglobin 15.2 14.0-18.0 g/dL Hematocrit 44.2 42-52 % Mean Corpuscular Volume 82.6 80-100 fL Mean Corpuscular Hemoglobin 28.4 25-34 pg Mean Corpuscular Hemoglobin Concent 34.4 32-36 g/dl Platelet Count 251 130-400 K/uL Mean Platelet Volume 9.2 7.4-10.4 fL Neutrophils (%) (Auto) 57.8 % Lymphocytes (%) (Auto) 31.3 % Monocytes (%) (Auto) 6.2 % Eosinophils (%) (Auto) 3.7 % Basophils (%) (Auto) 0.6 % Neutrophils # (Auto) 4.19 1.4-6.5 K/uL Lymphocytes # (Auto) 2.27 1.2-3.4 K/uL Monocytes # (Auto) 0.45 0.11-0.59 K/uL Eosinophils # (Auto) 0.27 0-0.5 K/uL Basophils # (Auto) 0.04 0-0.2 K/uL RDW Standard Deviation 37.2 36.4-46.3 fL RDW Coefficient of Variation 12.5 11.5-14.5 % Immature Granulocyte % (Auto) 0.4 % Immature Granulocyte # (Auto) 0.03 0.00-0.02 K/uL Prothrombin Time 10.4 9.0-12.0 SECONDS Prothromb Time International Ratio 1.0 0.9-1.1 Activated Partial Thromboplast Time 28.5 21.0-31.0 SECONDS Partial Thromboplastin Ratio 1.1 Sodium Level 142 136-145 mmol/L Potassium Level 4.0 3.5-5.1 mmol/L Chloride Level 108 98-107 mmol/L Carbon Dioxide Level 24 21-32 mmol/L Blood Urea Nitrogen 12 7-18 mg/dl Creatinine 1.03 0.60-1.40 mg/dl Est Creatinine Clear Calc Drug Dose 104.3 ml/min Estimated GFR () 118.1 Estimated GFR (Non- 101.9 BUN/Creatinine Ratio 12.1 10-20 Random Glucose 111 70-99 mg/dl Calcium Level 9.0 8.5-10.1 mg/dl Total Bilirubin 1.4 0.2-1 mg/dl Direct Bilirubin 0.2 0-0.2 mg/dl Aspartate Amino Transf (AST/SGOT) 17 15-37 U/L Alanine Aminotransferase (ALT/SGPT) 40 12-78 U/L Alkaline Phosphatase 81 45-117 U/L Total Protein 7.4 6.4-8.2 gm/dl Albumin 4.4 3.4-5.0 gm/dl Lipase 109 73-393 U/L Urine Color YELLOW Urine Appearance CLEAR CLEAR Urine pH 5.0 4.5-7.5 Urine Specific [place] > 1.045 1.000-1.030 Urine Protein NEG NEG Urine Glucose (UA) NEG NEG Urine Ketones NEG NEG Urine Occult Blood NEG NEG Urine Nitrite NEG NEG Urine Bilirubin NEG NEG Urine Urobilinogen NEG NEG Urine Leukocyte Esterase NEG NEG Test 05/19/17 04:54 05/19/17 06:00 05/19/17 08:00 05/19/17 08:30 Range/Units Bedside Hemoglobin 10.5 14.0-18.0 g/dl Bedside Hematocrit 31 42-52 % Bedside Sodium 143 135-144 mEq/L Bedside Potassium 4.2 3.3-5.0 mEq/L Bedside Chloride 107 101-112 mEq/L Bedside Total CO2 22 24-31 mEq/l Anion Gap 19.0 16-25 mmol/L Bedside Blood Urea Nitrogen 12 7-18 mg/dl Bedside Creatinine 1.1 0.6-1.3 mg/dl Bedside Glucose (other) 131 70-99 mg/dl Bedside Ionized Calcium (Jeremias) 1.12 1.12-1.32 mmol/l Lactic Acid Level 1.6 0.4-2.0 mmol/L Test 05/19/17 10:45 Range/Units Microbiology Results 05/19/17 MRSA DNA Surveillance Screen - Final, Complete Specimen Negative for MRSA by DNA Probe 05/19/17 C.difficile Toxin B Gene (PCR) - Final, Complete No C. difficile toxin B gene detected 05/19/17 Shiga Toxin Test, Received Pending 05/19/17 Stool Culture, Received Pending Assessment and Plan 21 year old male with bright red rectal bleeding. Found to have polypoid mass found on CT scan of the stomach in the distal small intestine GI bleed secondary to polypoid mass in distal small intestine - Hgb drop (POC 14.5 -> 10.5) - 2 units blood transfusion given and repeat Hgb pending - 3 L of fluids given in the ED and patient receiving 100ml/hr - consult GI - recommend MR enterography and will do scope depending on findings - continue PPI IV and stop octreotide drip - stool cultures pending - c. diff negative - consult flask pusher for ICU management - his HR and BP are stable at this time and he is not requiring vasopressor support Continued [facility] stay due to: multiple IV medications needed Discharge planning: home Reviewed: Pt Seen/Exam by Me History some abdominal discomfort but no pain. Constitutional: denies: fever Respiratory: negative: short of breath Cardiovascular: denies chest pain General Appearance: no apparent distress Respiratory: lungs clear, no respiratory distress Cardiovascular: regular rate, rhythm Gastrointestinal: normal bowel sounds, non tender, soft Neurologic/Psychiatric: alert, oriented x 3 Skin Characteristics: warm/dry Assessment/Plan Resident Physician Supervision Note: I independently interviewed and examined the patient and verified the ott history and physical, reviewed labs and image studies, discussed the case with the resident Dr. Lucia and agree with the findings and care plan.
[2017-05-19 11:29] LABS: INR 1.1 (0.9-1.1); PROTHROMBIN TIME (PATIENT) 11.6 SECONDS (9.0-12.0)
[2017-05-19 11:40] LABS: BUN/CREATININE RATIO 10.8 (10-20); CALCIUM 8.1 mg/dl (8.5-10.1); CREATININE 0.96 mg/dl (0.60-1.40); POTASSIUM 4.2 mmol/L (3.5-5.1)
[2017-05-19] MEDS: PANTOprazole INJ 40 MG in DEXTROSE 5% 100ML IV SCH ×3 (11:45→20:12)
[2017-05-19] MEDS: NORMOSOL R 1,000 ML IV SCH ×2 (11:45→16:45)
--- NOTE | 2017-05-19 14:02 | Progress Note ---
Progress Note Date of Service May 19, 2017. Progress Note Reviewing the CT scan, it does not appear that the lesion is within typical reach of colonoscopy. MRE should help get a better location. I recommend having surgery see patient as well. The next best test maybe a Meckel's scan, but would ask for input from surgery. Follow H/H and symptoms. If significant rebleeding occurs, patient will need access to interventional radiology. Tc Leon M.D.
[2017-05-19] MEDS ORDERED: NURSING VERBAL MED ORDER ONE (14:15)
[2017-05-19] MEDS ORDERED: GLUCAGON FOR INJ 1 MG VIAL IM PRN (14:30)
--- NOTE | 2017-05-19 15:34 | Surgery Consultation ---
Consultation Date of Consultation: May 19, 2017. Attending Physician: Janessa Espinoza M.D. Reason for Consultation: GI Bleed (Siobhan Mendiola PA-C) History of Present Illness Emily is a pleasant 21 year-old male who presented to emergency department late last evening after having a few episodes of rectal bleeding and feeling of uneasiness. States he first felt he needed to have a bowel movement around 7- 8pm and noticed a lot of bright red blood. Then had a few other episodes of just bright red rectal bleeding. Presented to the emergency room and then had a few other episodes of rectal bleeding and had a near syncopal episode with some hypotension. Hemoglobin on admission was 14.6 and repeat at 04:17 showed drop of hemoglobin at 11.2 and then repeat again 40 minutes later showed hemoglobin at 10.5. He was given IV fluids and 2 units of PRBCs and admitted to ICU for further management. CT scan showed findings concerning of lower small bowel hemorrhage and MR enterography was recommended for further evaluation. Rin states he has never had anything like this happen before. Was in his normal state of health for most of yesterday until last evening. Has slight associated nausea but no vomiting or abdominal pain. Denies of any fever , chills, vomiting, chest pain, shortness of breath, difficulty breathing, change in bowel habits, diarrhea, constipation. Denies of any history of GI problems. Denies of any family history of inflammatory bowel disease or colon cancer. Overall healthy and does not take any home medications. States he feels slightly lightheaded when he has bowel movement with bleeding and some nausea however again denies abdominal pain. Has had one episode of bleeding about 10-15 ml since ICU admission Vitals have been stable and currently obtaining blood for repeat H&H check. Just came back from MR enterography , awaiting final results. (Siobhan Mendiola PA-C) Past Medical/Surgical History Medical Problems: No past medical history Past Surgical History: No past surgical history (Siobhan Mendiola PA-C) Family History Family history: Denies family history of inflammatory bowel disease or colon cancer (Siobhan Mendiola PA-C) Social History Smoking Status: Former Smoker Smokeless Tobacco Use: No Alcohol Use: occasionally Drug Use: none Marital Status: single Housing Status: lives with roommate Occupation Status: [employer] student (Siobhan Mendiola PA-C) Allergies Coded Allergies: No Known Allergies (Unverified , 05/19/17) Home Medications No Active Prescriptions or Reported Meds Current Inpatient Medications Current Inpatient Medications Medications (Trade) Dose Ordered Sig/Viktoria Route Start Time Stop Time Status Last Admin Dose Admin Ioversol (Optiray 320) 100 ml UD PRN IV 05/19/17 01:30 05/23/17 01:29 Parenteral Electrolyte Solution 1,000 ml @ 100 mls/hr Q10H IV 05/19/17 06:45 06/18/17 06:44 05/19/17 11:45 100 MLS/HR Pantoprazole Sodium 40 mg/ Dextrose 100 ml @ 20 mls/hr Q5H IV 05/19/17 10:30 06/18/17 10:29 05/19/17 11:45 20 MLS/HR Glucagon (Glucagon Inj) 1 mg ONE PRN IM 05/19/17 14:30 05/19/17 19:00 (Siobhan Mendiola, MILAGROSC) Review of Systems Constitutional: No fever, No chills, No sweats Respiratory: No cough, No shortness of breath Cardiovascular: No chest pain, No palpitations Abdomen: + nausea, + GI bleeding (as per HPI), No pain, No vomiting Genitourinary - Male: No hematuria, No dysuria Integumentary: No rash (Siobhan Mendiola, MILAGROSC) Physical Exam Date Time Temp Pulse Resp B/P (MAP) Pulse Ox O2 Delivery O2 Flow Rate FiO2 05/19/17 14:00 85 20 130/83 (99) 97 Room Air 05/19/17 12:00 76 20 126/73 (90) 98 Room Air 05/19/17 12:00 Room Air 05/19/17 09:30 37.0 74 19 129/67 (87) 96 Room Air 05/19/17 09:15 37.0 81 15 134/72 (92) 96 Room Air 05/19/17 08:15 83 16 117/63 (81) 99 05/19/17 08:00 Room Air 05/19/17 07:48 37.0 88 16 118/62 (80) 99 Room Air 05/19/17 07:33 37.0 70 14 110/63 98 05/19/17 06:56 37.0 84 18 130/79 99 Room Air 05/19/17 06:40 37.1 82 21 122/75 99 05/19/17 06:10 37.0 84 18 130/79 99 05/19/17 06:00 37.0 83 22 101/57 99 05/19/17 05:55 83 22 101/57 99 Room Air 05/19/17 05:50 78 22 107/57 99 Room Air 05/19/17 05:45 79 27 104/60 100 Room Air 05/19/17 05:41 37.0 83 16 103/61 100 05/19/17 05:41 83 19 103/61 100 Room Air 05/19/17 05:35 82 27 112/68 100 Room Air 05/19/17 05:30 84 17 112/71 100 Room Air 05/19/17 05:25 77 15 101/64 99 Room Air 05/19/17 05:20 37.2 73 16 100/61 99 05/19/17 05:20 73 22 100/61 100 Room Air 05/19/17 05:15 76 24 108/66 99 Room Air 05/19/17 05:10 79 18 107/63 100 Room Air 05/19/17 05:05 78 20 102/68 100 Room Air 05/19/17 05:04 37.2 77 15 110/59 99 05/19/17 05:00 77 23 110/59 Room Air 05/19/17 04:55 73 18 102/68 Room Air 05/19/17 04:51 78 22 65/36 05/19/17 03:49 85 16 140/74 96 Room Air 05/19/17 02:33 76 16 132/86 134/71 133/79 05/19/17 02:32 101 18 133/79 97 Room Air 05/19/17 02:00 88 05/19/17 01:25 99 Room Air 05/19/17 01:00 37.1 103 16 149/101 95 Room Air General Appearance: WD/WN, no apparent distress Head: normocephalic, atraumatic Eyes: sclerae normal ENT: hearing grossly normal Respiratory/Chest: lungs clear, normal breath sounds, no respiratory distress, no accessory muscle use Cardiovascular: regular rate, rhythm, no murmur Abdomen/GI: non tender, soft, no organomegaly, no pulsatile mass, + abnormal bowel sounds (hypoactive) Neurologic/Psych: alert, normal mood/affect, oriented x 3 Skin: normal color, warm/dry, no rash (Siobhan Mendiola ., MARVA) Laboratory Results Last 24 Hours Test 05/19/17 01:21 05/19/17 01:24 05/19/17 02:39 05/19/17 04:17 Bedside Hemoglobin 14.6 g/dl 11.2 g/dl Bedside Hematocrit 43 % 33 % Bedside Sodium 143 mEq/L 144 mEq/L Bedside Potassium 4.0 mEq/L 4.3 mEq/L Bedside Chloride 105 mEq/L 106 mEq/L Bedside Total CO2 25 mEq/l 27 mEq/l Anion Gap 18.0 mmol/L 10.0 mmol/L 16.0 mmol/L Bedside Blood Urea Nitrogen 12 mg/dl 12 mg/dl Bedside Creatinine 1.0 mg/dl 0.9 mg/dl Bedside Glucose (other) 113 mg/dl 100 mg/dl Bedside Ionized Calcium (Jeremias) 1.18 mmol/l 1.20 mmol/l White Blood Count 7.25 K/uL Red Blood Count 5.35 M/uL Hemoglobin 15.2 g/dL Hematocrit 44.2 % Mean Corpuscular Volume 82.6 fL Mean Corpuscular Hemoglobin 28.4 pg Mean Corpuscular Hemoglobin Concent 34.4 g/dl Platelet Count 251 K/uL Mean Platelet Volume 9.2 fL Neutrophils (%) (Auto) 57.8 % Lymphocytes (%) (Auto) 31.3 % Monocytes (%) (Auto) 6.2 % Eosinophils (%) (Auto) 3.7 % Basophils (%) (Auto) 0.6 % Neutrophils # (Auto) 4.19 K/uL Lymphocytes # (Auto) 2.27 K/uL Monocytes # (Auto) 0.45 K/uL Eosinophils # (Auto) 0.27 K/uL Basophils # (Auto) 0.04 K/uL RDW Standard Deviation 37.2 fL RDW Coefficient of Variation 12.5 % Immature Granulocyte % (Auto) 0.4 % Immature Granulocyte # (Auto) 0.03 K/uL Prothrombin Time 10.4 SECONDS Prothromb Time International Ratio 1.0 Activated Partial Thromboplast Time 28.5 SECONDS Partial Thromboplastin Ratio 1.1 Sodium Level 142 mmol/L Potassium Level 4.0 mmol/L Chloride Level 108 mmol/L Carbon Dioxide Level 24 mmol/L Blood Urea Nitrogen 12 mg/dl Creatinine 1.03 mg/dl Est Creatinine Clear Calc Drug Dose 104.3 ml/min Estimated GFR () 118.1 Estimated GFR (Non- 101.9 BUN/Creatinine Ratio 12.1 Random Glucose 111 mg/dl Calcium Level 9.0 mg/dl Total Bilirubin 1.4 mg/dl Direct Bilirubin 0.2 mg/dl Aspartate Amino Transf (AST/SGOT) 17 U/L Alanine Aminotransferase (ALT/SGPT) 40 U/L Alkaline Phosphatase 81 U/L Total Protein 7.4 gm/dl Albumin 4.4 gm/dl Lipase 109 U/L Urine Color YELLOW Urine Appearance CLEAR Urine pH 5.0 Urine Specific [place] > 1.045 Urine Protein NEG Urine Glucose (UA) NEG Urine Ketones NEG Urine Occult Blood NEG Urine Nitrite NEG Urine Bilirubin NEG Urine Urobilinogen NEG Urine Leukocyte Esterase NEG Test 05/19/17 04:54 05/19/17 06:00 05/19/17 11:03 05/19/17 15:05 Bedside Hemoglobin 10.5 g/dl Bedside Hematocrit 31 % Bedside Sodium 143 mEq/L Bedside Potassium 4.2 mEq/L Bedside Chloride 107 mEq/L Bedside Total CO2 22 mEq/l Anion Gap 19.0 mmol/L 9.0 mmol/L Bedside Blood Urea Nitrogen 12 mg/dl Bedside Creatinine 1.1 mg/dl Bedside Glucose (other) 131 mg/dl Bedside Ionized Calcium (Jeremias) 1.12 mmol/l Lactic Acid Level 1.6 mmol/L Prothrombin Time 11.6 SECONDS Prothromb Time International Ratio 1.1 Activated Partial Thromboplast Time 26.2 SECONDS Partial Thromboplastin Ratio 1.0 Sodium Level 142 mmol/L Potassium Level 4.2 mmol/L Chloride Level 108 mmol/L Carbon Dioxide Level 26 mmol/L Blood Urea Nitrogen 10 mg/dl Creatinine 0.96 mg/dl Est Creatinine Clear Calc Drug Dose 111.9 ml/min Estimated GFR () 128.6 Estimated GFR (Non- 111.0 BUN/Creatinine Ratio 10.8 Random Glucose 117 mg/dl Calcium Level 8.1 mg/dl ABD/PELVIS IV CONTRAST ONLY CLINICAL HISTORY: 21 years-old Male presenting with GI bleed and lower abd pain. TECHNIQUE: Multidetector CT of the abdomen and pelvis was performed after the administration of intravenous contrast. IV contrast: 93 mL of Optiray 320. A dose lowering technique was used consistent with the principles of ALARA (as low as reasonably achievable). COMPARISON: None. CT DOSE (mGy.cm): The estimated cumulative dose is 303.89 mGy.cm. FINDINGS: Stock Blender topogram: Unremarkable. Lung bases: Lung bases clear. Normal heart size. No pericardial or pleural effusion. Liver: Normal morphology. Density suggestive of hepatic steatosis. Patent hepatic vasculature. Biliary: No intrahepatic or extrahepatic biliary ductal dilatation. Normal gallbladder. Pancreas: Normal. Spleen: Normal. Splenules noted. Adrenal glands: Normal. Kidneys and ureters: Normal. No hydronephrosis. Bladder: Normal. Pelvic organs: Prostate and seminal vesicles normal. Bowel: Hyperdense material noted within the distal small bowel with a potential polypoid focus along the small bowel wall is silhouetted by the presumed extravasated intraluminal IV contrast (series 3 image 271). This polypoid focus measures 1.8 x 0.9 cm. Normal appendix. No bowel obstruction. Peritoneal cavity: No free fluid or intraperitoneal gas. Lymph nodes: No enlarged lymph nodes in the abdomen or pelvis. Vasculature: Aorta and IVC patent and normal in caliber. Abdominal wall: Normal. Musculoskeletal: Normal. IMPRESSION: 1. Findings concerning for distal small bowel gastrointestinal hemorrhage. A potential polypoid focus along the small bowel wall is silhouetted by the extravasated intraluminal contrast. This raises concern for an underlying lesion. Further evaluation with capsule endoscopy versus CT or MR enterography. The report will be called/faxed according to standard departmental protocol. (Siobhan Mendiola ., LETHA-C) Assessment & Plan 21 year-old male who presented to emergency department late last evening with multiple episodes of rectal bleeding. He had further episodes of rectal bleeding in the ER and become hypotensive and had a near syncopal episode. His repeat H&H showed a drop from 14.6 /43 to 11.2/33 respectively. He was transfused 2 units of PRBCs and admitted to ICU for further management. CT scan showing findings concerning for distal small bowel gastrointestinal hemorrhage. A potential polypoid focus along the small bowel wall is silhouetted by the extravasated intraluminal contrast. This raises concern for an underlying lesion. MR Enterography pending. Repeat H&H being drawn. Plan: Continue current ICU management Continue Telemetry Continue IV fluids and Protonix IV Monitor Electrolytes, replete as needed Keep NPO Await results of MR enterography. Will determine further plan of action once results obtained. Dr. Monzon has seen and examined patient, agrees with above (Siobhan Mendiola ., PATarun) Pt seen and examined with LETHA Aponte. History and physical exam performed by myself. LGIB - ? source - Meckel's vs polyp/ growth of distal small bowel. Await MRI enterography. Last bowel movement with blood was 1 pm. Nothing further since. Will follow H/H. Vitals are stable. Likely will need surgical intervention - discussed partial small bowel resection with pt. Will decide after his MR enterography results are in. (Keara Monzon MD)
[2017-05-19 16:10] LABS: HEMATOCRIT 35.7 % (42-52); MEAN CELL VOLUME 83.8 fL (80-100); MEAN CORPUSCULAR HEMOGLOBIN 28.2 pg (25-34); MEAN CORPUSCULAR HGB CONC 33.6 g/dl (32-36); MEAN PLATELET VOLUME 8.8 fL (7.4-10.4); PLATELET COUNT 176 K/uL (130-400); RED BLOOD COUNT 4.26 M/uL (4.7-6.1); WHITE BLOOD COUNT 5.66 K/uL (4.8-10.8)
--- NOTE | 2017-05-19 16:26 | DIAGNOSTIC IMAGING REPORT ---
ENTEROGRAPHY ABD/PELVIS COMBO CLINICAL HISTORY: Small bowel lesion on CT. GI bleed. COMPARISON STUDY: CT of the abdomen and pelvis May 19, 2017 at 1:57 AM. TECHNIQUE: Utilizing 1.5 Monica magnet, multiplanar, multiecho imaging of the abdomen and pelvis was performed pre and postcontrast administration with dynamic enhancement. Injection of 7.5 cc of Gadavist IV was uneventful. 1 mg of glucagon was administered IM. FINDINGS: The liver, spleen, adrenal glands, kidneys and pancreas are normal. There is no biliary or pancreatic ductal dilatation. There is no hydronephrosis. There is no evidence for a bowel obstruction. The caliber of small and large bowel is normal. Note is made of a 1.2 x 1.2 cm round hypervascular focus on postcontrast images within the small bowel of the right lower quadrant, within the distal ileum shown best on axial image 36 of 120. This corresponds to the abnormality on prior CT. No additional abnormalities are identified on since examination. Terminal ileum and appendix are normal. Skeletal structures are unremarkable. IMPRESSION: 1.2 x 1.2 cm round hypervascular focus within the small bowel of the right lower quadrant, likely within the distal ileum. This corresponds to the abnormality on prior CT and suggests a small bowel lesion and could account for GI bleeding. Differential considerations include a Meckel's diverticulum, vascular malformation or neoplasm. Electronically signed by: Amauri Reyes M.D. 05/19/2017 4:25 PM Dictated Date/Time: 05/19/2017 4:03 PM
[2017-05-19 20:30] LABS: HEMATOCRIT 34.3 % (42-52)
[2017-05-20] VITALS (19 sets, daily range): BP systolic 112–149; BP diastolic 61–84; PULSE 59–101; TEMP 36.6–37.2; O2SAT 95–100
[2017-05-20] MEDS: PANTOprazole INJ 40 MG in DEXTROSE 5% 100ML IV SCH ×5 (00:43→22:17)
[2017-05-20] MEDS: NORMOSOL R 1,000 ML IV SCH ×2 (05:48→17:02)
[2017-05-20 08:13] LABS: BASO % 0.3 %; BASO ABS # 0.02 K/uL (0-0.2); COMPLETE YES; EOS % 3.7 %; HEMATOCRIT 34.1 % (42-52); IG% 0.3 %; LYMPH % 24.3 %; LYMPH ABS # 1.51 K/uL (1.2-3.4); MEAN CORPUSCULAR HEMOGLOBIN 27.7 pg (25-34); MEAN CORPUSCULAR HGB CONC 33.4 g/dl (32-36); MEAN PLATELET VOLUME 8.7 fL (7.4-10.4); MONO % 6.1 %; NEUT % 65.3 %; PLATELET COUNT 181 K/uL (130-400); RED BLOOD COUNT 4.11 M/uL (4.7-6.1); WHITE BLOOD COUNT 6.21 K/uL (4.8-10.8)
[2017-05-20 08:49] LABS: CALCIUM 8.2 mg/dl (8.5-10.1); CREATININE 0.9 mg/dl (0.60-1.40); MAGNESIUM 2.2 mg/dl (1.8-2.4); POTASSIUM 3.7 mmol/L (3.5-5.1)
[2017-05-20 08:56] LABS: ALB/GLOB RATIO 1.5 (0.9-2); PHOSPHORUS 3.6 mg/dl (2.5-4.9)
--- NOTE | 2017-05-20 10:33 | Gastroenterology Progress Note ---
Progress Note Date of Service: May 20, 2017 Subjective Pt evaluation today including: conversation w/ patient, physical exam, chart review, lab review, review of studies, conversation w/ data processing systems consultant, review of inpatient medication list No hematochezia/bleeding since yesterday. Flatus this AM but no BM. Feels well this AM. H/H stable Review of Systems 12 systems reviewed and negative except as noted Medications Current Inpatient Medications Medications (Trade) Dose Ordered Sig/Viktoria Route Start Time Stop Time Status Last Admin Dose Admin Ioversol (Optiray 320) 100 ml UD PRN IV 05/19/17 01:30 05/23/17 01:29 Parenteral Electrolyte Solution 1,000 ml @ 100 mls/hr Q10H IV 05/19/17 06:45 06/18/17 06:44 05/20/17 05:48 100 MLS/HR Pantoprazole Sodium 40 mg/ Dextrose 100 ml @ 20 mls/hr Q5H IV 05/19/17 10:30 06/18/17 10:29 05/20/17 05:47 20 MLS/HR Objective Vital Signs Date Time Temp Pulse Resp B/P (MAP) Pulse Ox O2 Delivery O2 Flow Rate FiO2 05/20/17 09:00 65 16 130/61 (84) 99 Room Air 05/20/17 08:00 36.9 72 16 122/71 (88) 98 Room Air 05/20/17 08:00 Room Air 05/20/17 06:00 65 16 128/65 (86) 99 Room Air 05/20/17 04:00 36.9 63 14 120/68 (85) 98 Room Air 05/20/17 04:00 97 Room Air 05/20/17 02:00 65 16 123/71 (88) 98 Room Air 05/20/17 00:01 37.0 79 16 124/67 (86) 98 Room Air 05/19/17 23:59 98 Room Air 05/19/17 22:00 65 15 135/67 (89) 98 Room Air 05/19/17 20:00 97 Room Air 05/19/17 20:00 37.0 67 17 133/61 (85) 97 Room Air 05/19/17 18:01 67 16 125/69 (87) 98 Room Air 05/19/17 16:10 36.9 72 19 147/77 (100) 99 Room Air 05/19/17 16:02 Room Air 05/19/17 14:00 85 20 130/83 (99) 97 Room Air 05/19/17 12:00 76 20 126/73 (90) 98 Room Air 05/19/17 12:00 Room Air Physical Exam General Appearance: WD/WN, no apparent distress Eyes: normal inspection, PERRL ENT: normal ENT inspection, hearing grossly normal, pharynx normal Neck: supple, no adenopathy, no JVD Respiratory/Chest: chest non-tender, lungs clear, normal breath sounds, no respiratory distress Cardiovascular: regular rate, rhythm, no murmur Abdomen: normal bowel sounds, non tender, soft Extremities: normal range of motion, non-tender, normal inspection, no calf tenderness Neurologic/Psych: manufacturing engineering technologist II-XII nml as tested, no motor/sensory deficits, alert, normal mood/affect Skin: normal color, no jaundice, no rash Laboratory Results Last 24 Hours Test 05/19/17 11:03 05/19/17 12:31 05/19/17 15:53 05/19/17 16:57 Prothrombin Time 11.6 SECONDS Prothromb Time International Ratio 1.1 Activated Partial Thromboplast Time 26.2 SECONDS Partial Thromboplastin Ratio 1.0 Sodium Level 142 mmol/L Potassium Level 4.2 mmol/L Chloride Level 108 mmol/L Carbon Dioxide Level 26 mmol/L Anion Gap 9.0 mmol/L Blood Urea Nitrogen 10 mg/dl Creatinine 0.96 mg/dl Est Creatinine Clear Calc Drug Dose 111.9 ml/min Estimated GFR () 128.6 Estimated GFR (Non- 111.0 BUN/Creatinine Ratio 10.8 Random Glucose 117 mg/dl Calcium Level 8.1 mg/dl Bedside Glucose 109 mg/dl 139 mg/dl White Blood Count 5.66 K/uL Red Blood Count 4.26 M/uL Hemoglobin 12.0 g/dL Hematocrit 35.7 % Mean Corpuscular Volume 83.8 fL Mean Corpuscular Hemoglobin 28.2 pg Mean Corpuscular Hemoglobin Concent 33.6 g/dl RDW Standard Deviation 39.6 fL RDW Coefficient of Variation 13.1 % Platelet Count 176 K/uL Mean Platelet Volume 8.8 fL Test 05/19/17 20:17 05/19/17 23:48 05/20/17 08:00 Hemoglobin 11.6 g/dL 11.3 g/dL 11.4 g/dL Hematocrit 34.3 % 33.0 % 34.1 % White Blood Count 6.21 K/uL Red Blood Count 4.11 M/uL Mean Corpuscular Volume 83.0 fL Mean Corpuscular Hemoglobin 27.7 pg Mean Corpuscular Hemoglobin Concent 33.4 g/dl Platelet Count 181 K/uL Mean Platelet Volume 8.7 fL Neutrophils (%) (Auto) 65.3 % Lymphocytes (%) (Auto) 24.3 % Monocytes (%) (Auto) 6.1 % Eosinophils (%) (Auto) 3.7 % Basophils (%) (Auto) 0.3 % Neutrophils # (Auto) 4.05 K/uL Lymphocytes # (Auto) 1.51 K/uL Monocytes # (Auto) 0.38 K/uL Eosinophils # (Auto) 0.23 K/uL Basophils # (Auto) 0.02 K/uL RDW Standard Deviation 39.6 fL RDW Coefficient of Variation 13.0 % Immature Granulocyte % (Auto) 0.3 % Immature Granulocyte # (Auto) 0.02 K/uL Sodium Level 142 mmol/L Potassium Level 3.7 mmol/L Chloride Level 106 mmol/L Carbon Dioxide Level 27 mmol/L Anion Gap 9.0 mmol/L Blood Urea Nitrogen 9 mg/dl Creatinine 0.90 mg/dl Est Creatinine Clear Calc Drug Dose 119.4 ml/min Estimated GFR () 139.0 Estimated GFR (Non- 120.0 BUN/Creatinine Ratio 10.0 Random Glucose 84 mg/dl Calcium Level 8.2 mg/dl Phosphorus Level 3.6 mg/dl Magnesium Level 2.2 mg/dl Total Bilirubin 1.9 mg/dl Aspartate Amino Transf (AST/SGOT) 13 U/L Alanine Aminotransferase (ALT/SGPT) 28 U/L Alkaline Phosphatase 58 U/L Total Protein 5.6 gm/dl Albumin 3.3 gm/dl Globulin 2.3 gm/dl Albumin/Globulin Ratio 1.5 Assessment and Plan 21 yo male admitted with acute GI bleed which appears to originate from the small intestine. 1.2 x 1.2 cm hyperdense focus in the small bowel (RLQ) seen on imaging. He has stopped bleeding. The risk of rebleeding is high especially given his young age. He will need definitive surgical removal at some point. it would be helpful for surgery to further localize/characterize the lesion given it's small size. Discussed with Dr. Keara Monzon and will plan for urgent outpatient video capsule study on Monday followed by outpatient surgical intervention unless he acutely rebleeds. - Full liquid diet today. - Follow for the next 24 hours and if no signs of rebleeding, would ultimately discharge later tomorrow and proceed as outlined above. - Discussed with patient who is in agreement.
--- NOTE | 2017-05-20 10:54 | Surgery Progress Note ---
Surgery Progress Note Date of Service May 20, 2017. Subjective No further bowel movements since 1 pm yesterday although he notes he is "not straining". Still notes some bloating but no pain. No nausea or vomiting. Objective Vital Signs: Date Time Temp Pulse Resp B/P (MAP) Pulse Ox O2 Delivery O2 Flow Rate FiO2 05/20/17 10:00 82 24 149/75 (99) 98 Room Air 05/20/17 09:00 65 16 130/61 (84) 99 Room Air 05/20/17 08:00 36.9 72 16 122/71 (88) 98 Room Air 05/20/17 08:00 Room Air 05/20/17 06:00 65 16 128/65 (86) 99 Room Air 05/20/17 04:00 36.9 63 14 120/68 (85) 98 Room Air 05/20/17 04:00 97 Room Air 05/20/17 02:00 65 16 123/71 (88) 98 Room Air 05/20/17 00:01 37.0 79 16 124/67 (86) 98 Room Air 05/19/17 23:59 98 Room Air 05/19/17 22:00 65 15 135/67 (89) 98 Room Air 05/19/17 20:00 97 Room Air 05/19/17 20:00 37.0 67 17 133/61 (85) 97 Room Air 05/19/17 18:01 67 16 125/69 (87) 98 Room Air 05/19/17 16:10 36.9 72 19 147/77 (100) 99 Room Air 05/19/17 16:02 Room Air 05/19/17 14:00 85 20 130/83 (99) 97 Room Air 05/19/17 12:00 76 20 126/73 (90) 98 Room Air 05/19/17 12:00 Room Air General Appearance: WD/WN, no apparent distress Head: normocephalic, atraumatic Neck: supple, no adenopathy Respiratory/Chest: no respiratory distress, no accessory muscle use Cardiovascular: regular rate, rhythm Abdomen: normal bowel sounds, non tender, soft, + distended (mild) Extremities: no pedal edema Laboratory Results: Results Past 24 Hours Test 05/19/17 11:03 05/19/17 12:31 05/19/17 15:53 05/19/17 16:57 Range/Units Prothrombin Time 11.6 9.0-12.0 SECONDS Prothromb Time International Ratio 1.1 0.9-1.1 Activated Partial Thromboplast Time 26.2 21.0-31.0 SECONDS Partial Thromboplastin Ratio 1.0 Sodium Level 142 136-145 mmol/L Potassium Level 4.2 3.5-5.1 mmol/L Chloride Level 108 98-107 mmol/L Carbon Dioxide Level 26 21-32 mmol/L Anion Gap 9.0 3-11 mmol/L Blood Urea Nitrogen 10 7-18 mg/dl Creatinine 0.96 0.60-1.40 mg/dl Est Creatinine Clear Calc Drug Dose 111.9 ml/min Estimated GFR () 128.6 Estimated GFR (Non- 111.0 BUN/Creatinine Ratio 10.8 10-20 Random Glucose 117 70-99 mg/dl Calcium Level 8.1 8.5-10.1 mg/dl Bedside Glucose 109 139 70-99 mg/dl White Blood Count 5.66 4.8-10.8 K/uL Red Blood Count 4.26 4.7-6.1 M/uL Hemoglobin 12.0 14.0-18.0 g/dL Hematocrit 35.7 42-52 % Mean Corpuscular Volume 83.8 80-100 fL Mean Corpuscular Hemoglobin 28.2 25-34 pg Mean Corpuscular Hemoglobin Concent 33.6 32-36 g/dl RDW Standard Deviation 39.6 36.4-46.3 fL RDW Coefficient of Variation 13.1 11.5-14.5 % Platelet Count 176 130-400 K/uL Mean Platelet Volume 8.8 7.4-10.4 fL Test 05/19/17 20:17 05/19/17 23:48 05/20/17 08:00 Range/Units Hemoglobin 11.6 11.3 11.4 14.0-18.0 g/dL Hematocrit 34.3 33.0 34.1 42-52 % White Blood Count 6.21 4.8-10.8 K/uL Red Blood Count 4.11 4.7-6.1 M/uL Mean Corpuscular Volume 83.0 80-100 fL Mean Corpuscular Hemoglobin 27.7 25-34 pg Mean Corpuscular Hemoglobin Concent 33.4 32-36 g/dl Platelet Count 181 130-400 K/uL Mean Platelet Volume 8.7 7.4-10.4 fL Neutrophils (%) (Auto) 65.3 % Lymphocytes (%) (Auto) 24.3 % Monocytes (%) (Auto) 6.1 % Eosinophils (%) (Auto) 3.7 % Basophils (%) (Auto) 0.3 % Neutrophils # (Auto) 4.05 1.4-6.5 K/uL Lymphocytes # (Auto) 1.51 1.2-3.4 K/uL Monocytes # (Auto) 0.38 0.11-0.59 K/uL Eosinophils # (Auto) 0.23 0-0.5 K/uL Basophils # (Auto) 0.02 0-0.2 K/uL RDW Standard Deviation 39.6 36.4-46.3 fL RDW Coefficient of Variation 13.0 11.5-14.5 % Immature Granulocyte % (Auto) 0.3 % Immature Granulocyte # (Auto) 0.02 0.00-0.02 K/uL Sodium Level 142 136-145 mmol/L Potassium Level 3.7 3.5-5.1 mmol/L Chloride Level 106 98-107 mmol/L Carbon Dioxide Level 27 21-32 mmol/L Anion Gap 9.0 3-11 mmol/L Blood Urea Nitrogen 9 7-18 mg/dl Creatinine 0.90 0.60-1.40 mg/dl Est Creatinine Clear Calc Drug Dose 119.4 ml/min Estimated GFR () 139.0 Estimated GFR (Non- 120.0 BUN/Creatinine Ratio 10.0 10-20 Random Glucose 84 70-99 mg/dl Calcium Level 8.2 8.5-10.1 mg/dl Phosphorus Level 3.6 2.5-4.9 mg/dl Magnesium Level 2.2 1.8-2.4 mg/dl Total Bilirubin 1.9 0.2-1 mg/dl Aspartate Amino Transf (AST/SGOT) 13 15-37 U/L Alanine Aminotransferase (ALT/SGPT) 28 12-78 U/L Alkaline Phosphatase 58 45-117 U/L Total Protein 5.6 6.4-8.2 gm/dl Albumin 3.3 3.4-5.0 gm/dl Globulin 2.3 2.5-4.0 gm/dl Albumin/Globulin Ratio 1.5 0.9-2 Assessment & Plan 21 yr old man with lower gi bleed likely from small bowel source. Appears to have stopped bleeding with no further bloody bowel movements and stable H/H since yesterday. MR enterography reviewed - shows a small 1.2 cm lesion in the distal small bowel which could be a AVM, polyp, possible Meckel's although diverticulum not seen. Discussed with pt that he will likely need to have surgery for removal of the source of the bleeding. This could be done either open or laparoscopically. As this lesion is very small, the chances of successful laparoscopic surgery increase with better localization/ definition of the lesion. We reviewed options of 1) surgery now which could be attempted laparoscopically but more likely would need laparotomy with risks of hernia, adhesions later in life. Expected differences in postop pain and recovery time between lap and open procedures discussed. If he rebleeds, will need surgery now. 2) trial of clear liquids and following H/H for 24 hrs with plans for capsule endoscopy as an outpt (this could be arranged for Monday as per Dr. Booth). This would allow for better definition of the lesion but carries risks of rebleeding or obstruction. Also, surgery would likely happen about 2 wks from now (time for scheduling and reading of capsule). All questions answered. He prefers to try capsule endoscopy if he does not rebleed. OK to start clear liquids today, full liquids tomorrow with plans for discharge Sun mohan/ Mon am if H/H stays stable. If rebleeds, will go to OR for exp lap and small bowel resection.
--- NOTE | 2017-05-20 12:01 | Family Medicine Progress Note ---
Progress Note Date of Service May 20, 2017. Subjective Pt evaluation today including: conversation w/ patient, physical exam, chart review, lab review, review of studies, conversation w/ fashion consultant, review of inpatient medication list Pain: denies PO Intake: adequate Voiding: no voiding problems NO acute events, rectal bleeding has resolved. He denies abdominal pain, N/V diarrhea. he reports some fatigue lightheadedness when getting up from bed. Constitutional: + fatigue, No fever, No chills Respiratory: No cough, No sputum, No wheezing, No shortness of breath Cardiovascular: No chest pain, No edema, No palpitations Abdomen: + GI bleeding (resolved), No pain, No nausea, No vomiting Male : No dysuria, No urinary frequency, No hematuria Skin: No rash, No itch Medications Current Inpatient Medications Medications (Trade) Dose Ordered Sig/Viktoria Route Start Time Stop Time Status Last Admin Dose Admin Ioversol (Optiray 320) 100 ml UD PRN IV 05/19/17 01:30 05/23/17 01:29 Parenteral Electrolyte Solution 1,000 ml @ 100 mls/hr Q10H IV 05/19/17 06:45 06/18/17 06:44 05/20/17 05:48 100 MLS/HR Pantoprazole Sodium 40 mg/ Dextrose 100 ml @ 20 mls/hr Q5H IV 05/19/17 10:30 06/18/17 10:29 05/20/17 11:05 20 MLS/HR Objective Vital Signs Date Time Temp Pulse Resp B/P (MAP) Pulse Ox O2 Delivery O2 Flow Rate FiO2 05/20/17 10:00 82 24 149/75 (99) 98 Room Air 05/20/17 09:00 65 16 130/61 (84) 99 Room Air 05/20/17 08:00 36.9 72 16 122/71 (88) 98 Room Air 05/20/17 08:00 Room Air 05/20/17 06:00 65 16 128/65 (86) 99 Room Air 05/20/17 04:00 36.9 63 14 120/68 (85) 98 Room Air 05/20/17 04:00 97 Room Air 05/20/17 02:00 65 16 123/71 (88) 98 Room Air 05/20/17 00:01 37.0 79 16 124/67 (86) 98 Room Air 05/19/17 23:59 98 Room Air 05/19/17 22:00 65 15 135/67 (89) 98 Room Air 05/19/17 20:00 97 Room Air 05/19/17 20:00 37.0 67 17 133/61 (85) 97 Room Air 05/19/17 18:01 67 16 125/69 (87) 98 Room Air 05/19/17 16:10 36.9 72 19 147/77 (100) 99 Room Air 05/19/17 16:02 Room Air 05/19/17 14:00 85 20 130/83 (99) 97 Room Air Physical Exam General Appearance: WD/WN, no apparent distress Eyes: PERRL, EOMI Neck: supple, no adenopathy, trachea midline Respiratory/Chest: lungs clear, normal breath sounds, no respiratory distress Cardiovascular: regular rate, rhythm, no murmur Abdomen: normal bowel sounds, non tender, soft Extremities: normal inspection, no pedal edema, no calf tenderness Neurologic/Psychiatric: alert, normal mood/affect, oriented x 3 Skin: normal color, no rash Laboratory Results Results Past 24 Hours Test 05/20/17 08:00 05/20/17 18:01 05/21/17 04:44 Range/Units White Blood Count 6.21 5.31 4.8-10.8 K/uL Red Blood Count 4.11 4.21 4.7-6.1 M/uL Hemoglobin 11.4 12.2 14.0-18.0 g/dL Hematocrit 34.1 34.9 42-52 % Mean Corpuscular Volume 83.0 82.9 80-100 fL Mean Corpuscular Hemoglobin 27.7 29.0 25-34 pg Mean Corpuscular Hemoglobin Concent 33.4 35.0 32-36 g/dl Platelet Count 181 212 130-400 K/uL Mean Platelet Volume 8.7 9.4 7.4-10.4 fL Neutrophils (%) (Auto) 65.3 % Lymphocytes (%) (Auto) 24.3 % Monocytes (%) (Auto) 6.1 % Eosinophils (%) (Auto) 3.7 % Basophils (%) (Auto) 0.3 % Neutrophils # (Auto) 4.05 1.4-6.5 K/uL Lymphocytes # (Auto) 1.51 1.2-3.4 K/uL Monocytes # (Auto) 0.38 0.11-0.59 K/uL Eosinophils # (Auto) 0.23 0-0.5 K/uL Basophils # (Auto) 0.02 0-0.2 K/uL RDW Standard Deviation 39.6 39.4 36.4-46.3 fL RDW Coefficient of Variation 13.0 13.0 11.5-14.5 % Immature Granulocyte % (Auto) 0.3 % Immature Granulocyte # (Auto) 0.02 0.00-0.02 K/uL Sodium Level 142 136-145 mmol/L Potassium Level 3.7 3.5-5.1 mmol/L Chloride Level 106 98-107 mmol/L Carbon Dioxide Level 27 21-32 mmol/L Anion Gap 9.0 3-11 mmol/L Blood Urea Nitrogen 9 7-18 mg/dl Creatinine 0.90 0.60-1.40 mg/dl Est Creatinine Clear Calc Drug Dose 119.4 ml/min Estimated GFR () 139.0 Estimated GFR (Non- 120.0 BUN/Creatinine Ratio 10.0 10-20 Random Glucose 84 70-99 mg/dl Calcium Level 8.2 8.5-10.1 mg/dl Phosphorus Level 3.6 2.5-4.9 mg/dl Magnesium Level 2.2 1.8-2.4 mg/dl Total Bilirubin 1.9 0.2-1 mg/dl Aspartate Amino Transf (AST/SGOT) 13 15-37 U/L Alanine Aminotransferase (ALT/SGPT) 28 12-78 U/L Alkaline Phosphatase 58 45-117 U/L Total Protein 5.6 6.4-8.2 gm/dl Albumin 3.3 3.4-5.0 gm/dl Globulin 2.3 2.5-4.0 gm/dl Albumin/Globulin Ratio 1.5 0.9-2 Assessment and Plan 21 year old male p/w bright red rectal bleeding likely secondary to polypoid mass found on CT, MRI enterography Lower GI bleed: secondary to polypoid mass in distal small intestine - H/H stable - s/p 2 units PRBC in total Surgery and GI input appreciated - Plan for video capsule study to locate the site of mass - to be done on monday as arranged by GI, Surgical repair will follow - diet advanced to full liquid. - if no bleeding - to discharge home later tomorrow - will need Surgical and GI follow ups on discharge - continue PPI - stool cultures neg, c. diff negative Acute blood loss anemia - h/h stable now. continue to monitor. Transfer to medical floor Continued [facility] stay due to: multiple IV medications needed Discharge planning: home Resident Tracking Resident Involvement: Resident Care Provided Care Provided: Adult Hospital Medicine Reviewed: Pt Seen/Exam by Me History denies abdominal pain. no rectal bleeding Constitutional: denies: fever Respiratory: negative: short of breath Cardiovascular: denies chest pain General Appearance: no apparent distress Respiratory: lungs clear, no respiratory distress Cardiovascular: regular rate, rhythm Gastrointestinal: normal bowel sounds, non tender, soft Neurologic/Psychiatric: alert, oriented x 3 Skin Characteristics: warm/dry Assessment/Plan Resident Physician Supervision Note: I independently interviewed and examined the patient and verified the ott history and physical, reviewed labs and image studies, discussed the case with the resident Dr. Caraballo and agree with the findings and care plan.
--- NOTE | 2017-05-20 15:10 | Critical Care Progress Note ---
Critical Care Progress Note Date of Service May 20, 2017. Attending Dr. Pompa Subjective No further bleeding per rectum. Still has mild abdominal discomfort, bloating. Ambulating without symptoms Objective General: young male in no distress HEENT: NC/AT Lungs: CTA b/l CVS: S1S2 regular Abdomen: mild distention, non-tender, soft, no guarding Ext: no edema [employer]: no deficit, AAO x 3 CT abd/pelvis on 05/19/17: IMPRESSION: 1. Findings concerning for distal small bowel gastrointestinal hemorrhage. A potential polypoid focus along the small bowel wall is silhouetted by the extravasated intraluminal contrast. This raises concern for an underlying lesion. Further evaluation with capsule endoscopy versus CT or MR enterography. MR enterography on 05/19/17: The report will be called/faxed according to standard departmental protocol. IMPRESSION: 1.2 x 1.2 cm round hypervascular focus within the small bowel of the right lower quadrant, likely within the distal ileum. This corresponds to the abnormality on prior CT and suggests a small bowel lesion and could account for GI bleeding. Differential considerations include a Meckel's diverticulum, vascular malformation or neoplasm. Assessment & Plan (1) Bright red blood per rectum (2) Blood loss (3) Bloody diarrhea (4) Pre-syncope (5) Orthostatic hypotension (6) GI bleeding 21 year-old previously healthy male presents with lower GI bleeding S/p 2 units PRBC yesterday Diagnosis: Lower GI bleeding, small bowel source Hemorrhagic anemia Plan: H/h stabilized. repeat CBC tonight at 1800 and in AM Surgical and GI follow ups noted. Patient to proceed with capsule endoscopy (as outpatient), follwed by possible surgical resection Full liquid diet At this point he may be transferred to medical floor, no further critical care issues. If he bleeds again, reconsult critical care Critical care time spent 25 minutes Documented By: Alvaro Pompa MD Consults & Procedures Consultants: GI - Dr Booth Surgery - Dr Monzon Procedures: None Data Medications: Current Inpatient Medications Medications (Trade) Dose Ordered Sig/Viktoria Route Start Time Stop Time Status Last Admin Dose Admin Ioversol (Optiray 320) 100 ml UD PRN IV 05/19/17 01:30 05/23/17 01:29 Parenteral Electrolyte Solution 1,000 ml @ 100 mls/hr Q10H IV 05/19/17 06:45 06/18/17 06:44 05/20/17 05:48 100 MLS/HR Pantoprazole Sodium 40 mg/ Dextrose 100 ml @ 20 mls/hr Q5H IV 05/19/17 10:30 06/18/17 10:29 05/20/17 11:05 20 MLS/HR I & O: 24-Hour Column 05/21/17 07:59 Intake Total 1370 ml Output Total 950 ml Balance 420 ml Vital Signs: Date Time Temp Pulse Resp B/P (MAP) Pulse Ox O2 Delivery O2 Flow Rate FiO2 05/20/17 13:00 94 15 134/82 (99) 97 Room Air 05/20/17 12:00 36.6 89 19 136/69 (91) 97 Room Air 05/20/17 12:00 Room Air 05/20/17 10:00 82 24 149/75 (99) 98 Room Air 05/20/17 09:00 65 16 130/61 (84) 99 Room Air 05/20/17 08:00 36.9 72 16 122/71 (88) 98 Room Air 05/20/17 08:00 Room Air 05/20/17 06:00 65 16 128/65 (86) 99 Room Air 05/20/17 04:00 36.9 63 14 120/68 (85) 98 Room Air 05/20/17 04:00 97 Room Air 05/20/17 02:00 65 16 123/71 (88) 98 Room Air 05/20/17 00:01 37.0 79 16 124/67 (86) 98 Room Air 05/19/17 23:59 98 Room Air 05/19/17 22:00 65 15 135/67 (89) 98 Room Air 05/19/17 20:00 97 Room Air 05/19/17 20:00 37.0 67 17 133/61 (85) 97 Room Air 05/19/17 18:01 67 16 125/69 (87) 98 Room Air 05/19/17 16:10 36.9 72 19 147/77 (100) 99 Room Air 05/19/17 16:02 Room Air Laboratory Results: Last 24 Hours Test 05/19/17 15:53 05/19/17 16:57 05/19/17 20:17 05/19/17 23:48 White Blood Count 5.66 K/uL Red Blood Count 4.26 M/uL Hemoglobin 12.0 g/dL 11.6 g/dL 11.3 g/dL Hematocrit 35.7 % 34.3 % 33.0 % Mean Corpuscular Volume 83.8 fL Mean Corpuscular Hemoglobin 28.2 pg Mean Corpuscular Hemoglobin Concent 33.6 g/dl RDW Standard Deviation 39.6 fL RDW Coefficient of Variation 13.1 % Platelet Count 176 K/uL Mean Platelet Volume 8.8 fL Bedside Glucose 139 mg/dl Test 05/20/17 08:00 White Blood Count 6.21 K/uL Red Blood Count 4.11 M/uL Hemoglobin 11.4 g/dL Hematocrit 34.1 % Mean Corpuscular Volume 83.0 fL Mean Corpuscular Hemoglobin 27.7 pg Mean Corpuscular Hemoglobin Concent 33.4 g/dl Platelet Count 181 K/uL Mean Platelet Volume 8.7 fL Neutrophils (%) (Auto) 65.3 % Lymphocytes (%) (Auto) 24.3 % Monocytes (%) (Auto) 6.1 % Eosinophils (%) (Auto) 3.7 % Basophils (%) (Auto) 0.3 % Neutrophils # (Auto) 4.05 K/uL Lymphocytes # (Auto) 1.51 K/uL Monocytes # (Auto) 0.38 K/uL Eosinophils # (Auto) 0.23 K/uL Basophils # (Auto) 0.02 K/uL RDW Standard Deviation 39.6 fL RDW Coefficient of Variation 13.0 % Immature Granulocyte % (Auto) 0.3 % Immature Granulocyte # (Auto) 0.02 K/uL Sodium Level 142 mmol/L Potassium Level 3.7 mmol/L Chloride Level 106 mmol/L Carbon Dioxide Level 27 mmol/L Anion Gap 9.0 mmol/L Blood Urea Nitrogen 9 mg/dl Creatinine 0.90 mg/dl Est Creatinine Clear Calc Drug Dose 119.4 ml/min Estimated GFR () 139.0 Estimated GFR (Non- 120.0 BUN/Creatinine Ratio 10.0 Random Glucose 84 mg/dl Calcium Level 8.2 mg/dl Phosphorus Level 3.6 mg/dl Magnesium Level 2.2 mg/dl Total Bilirubin 1.9 mg/dl Aspartate Amino Transf (AST/SGOT) 13 U/L Alanine Aminotransferase (ALT/SGPT) 28 U/L Alkaline Phosphatase 58 U/L Total Protein 5.6 gm/dl Albumin 3.3 gm/dl Globulin 2.3 gm/dl Albumin/Globulin Ratio 1.5 Problem Qualifiers (1) GI bleeding: GI bleed type/associated pathology: unspecified gastrointestinal hemorrhage type Qualified Codes: K92.2 - Gastrointestinal hemorrhage, unspecified
[2017-05-20 18:50] LABS: HEMATOCRIT 34.9 % (42-52); MEAN CELL VOLUME 82.9 fL (80-100); MEAN PLATELET VOLUME 9.4 fL (7.4-10.4); PLATELET COUNT 212 K/uL (130-400); RED BLOOD COUNT 4.21 M/uL (4.7-6.1); WHITE BLOOD COUNT 5.31 K/uL (4.8-10.8)
[2017-05-21] VITALS (9 sets, daily range): BP systolic 106–120; BP diastolic 64–70; PULSE 59–83; TEMP 36.5–36.9; O2SAT 97–99
[2017-05-21] MEDS: NORMOSOL R 1,000 ML IV SCH ×3 (03:40→17:35)
[2017-05-21] MEDS: PANTOprazole INJ 40 MG in DEXTROSE 5% 100ML IV SCH ×4 (03:40→17:30)
[2017-05-21 06:17] LABS: BASO % 0.4 %; BASO ABS # 0.02 K/uL (0-0.2); COMPLETE YES; EOS % 5.3 %; HEMATOCRIT 31.7 % (42-52); IG% 0.4 %; LYMPH % 37.6 %; LYMPH ABS # 1.76 K/uL (1.2-3.4); MEAN CELL VOLUME 82.8 fL (80-100); MEAN CORPUSCULAR HEMOGLOBIN 28.7 pg (25-34); MEAN CORPUSCULAR HGB CONC 34.7 g/dl (32-36); MEAN PLATELET VOLUME 8.9 fL (7.4-10.4); MONO % 8.1 %; NEUT % 48.2 %; PLATELET COUNT 176 K/uL (130-400); RED BLOOD COUNT 3.83 M/uL (4.7-6.1); WHITE BLOOD COUNT 4.68 K/uL (4.8-10.8)
[2017-05-21 07:50] LABS: CALCIUM 8.2 mg/dl (8.5-10.1); CREATININE 0.89 mg/dl (0.60-1.40); POTASSIUM 3.7 mmol/L (3.5-5.1)
--- NOTE | 2017-05-21 08:27 | Family Medicine Progress Note ---
Progress Note Date of Service May 21, 2017. Medications Current Inpatient Medications Medications (Trade) Dose Ordered Sig/Viktoria Route Start Time Stop Time Status Last Admin Dose Admin Ioversol (Optiray 320) 100 ml UD PRN IV 05/19/17 01:30 05/23/17 01:29 Parenteral Electrolyte Solution 1,000 ml @ 100 mls/hr Q10H IV 05/19/17 06:45 06/18/17 06:44 05/21/17 08:00 100 MLS/HR Pantoprazole Sodium 40 mg/ Dextrose 100 ml @ 20 mls/hr Q5H IV 05/19/17 10:30 06/18/17 10:29 05/21/17 08:00 20 MLS/HR Objective Vital Signs Date Time Temp Pulse Resp B/P (MAP) Pulse Ox O2 Delivery O2 Flow Rate FiO2 05/21/17 08:09 36.5 67 16 106/64 (78) 99 Room Air 05/21/17 04:00 99 Room Air 05/21/17 03:49 36.7 59 20 112/70 (84) 97 Room Air 05/20/17 23:59 100 Room Air 05/20/17 23:06 36.7 84 19 135/80 (98) 98 Room Air 05/20/17 20:00 99 Room Air 05/20/17 19:55 37.2 80 16 120/73 (89) 97 Room Air 05/20/17 18:03 95 Room Air 05/20/17 18:03 37.1 101 18 127/84 (98) 95 Room Air 05/20/17 17:55 37.1 101 16 127/84 (98) 95 Room Air 05/20/17 17:32 36.9 79 15 98 05/20/17 16:00 Room Air 05/20/17 16:00 36.9 79 15 119/64 (82) 98 Room Air 05/20/17 15:00 84 15 133/75 (94) 96 Room Air 05/20/17 13:00 94 15 134/82 (99) 97 Room Air 05/20/17 12:00 36.6 89 19 136/69 (91) 97 Room Air 05/20/17 12:00 Room Air 05/20/17 10:00 82 24 149/75 (99) 98 Room Air 05/20/17 09:00 65 16 130/61 (84) 99 Room Air Laboratory Results Results Past 24 Hours Test 05/20/17 18:01 05/21/17 05:54 Range/Units White Blood Count 5.31 4.68 4.8-10.8 K/uL Red Blood Count 4.21 3.83 4.7-6.1 M/uL Hemoglobin 12.2 11.0 14.0-18.0 g/dL Hematocrit 34.9 31.7 42-52 % Mean Corpuscular Volume 82.9 82.8 80-100 fL Mean Corpuscular Hemoglobin 29.0 28.7 25-34 pg Mean Corpuscular Hemoglobin Concent 35.0 34.7 32-36 g/dl RDW Standard Deviation 39.4 39.4 36.4-46.3 fL RDW Coefficient of Variation 13.0 13.1 11.5-14.5 % Platelet Count 212 176 130-400 K/uL Mean Platelet Volume 9.4 8.9 7.4-10.4 fL Neutrophils (%) (Auto) 48.2 % Lymphocytes (%) (Auto) 37.6 % Monocytes (%) (Auto) 8.1 % Eosinophils (%) (Auto) 5.3 % Basophils (%) (Auto) 0.4 % Neutrophils # (Auto) 2.25 1.4-6.5 K/uL Lymphocytes # (Auto) 1.76 1.2-3.4 K/uL Monocytes # (Auto) 0.38 0.11-0.59 K/uL Eosinophils # (Auto) 0.25 0-0.5 K/uL Basophils # (Auto) 0.02 0-0.2 K/uL Immature Granulocyte % (Auto) 0.4 % Immature Granulocyte # (Auto) 0.02 0.00-0.02 K/uL Sodium Level 142 136-145 mmol/L Potassium Level 3.7 3.5-5.1 mmol/L Chloride Level 107 98-107 mmol/L Carbon Dioxide Level 28 21-32 mmol/L Anion Gap 7.0 3-11 mmol/L Blood Urea Nitrogen 7 7-18 mg/dl Creatinine 0.89 0.60-1.40 mg/dl Est Creatinine Clear Calc Drug Dose 120.7 ml/min Estimated GFR () 139.7 Estimated GFR (Non- 120.5 BUN/Creatinine Ratio 8.0 10-20 Random Glucose 93 70-99 mg/dl Calcium Level 8.2 8.5-10.1 mg/dl Resident Tracking Resident Involvement: Resident Care Provided Care Provided: Adult [facility]
--- NOTE | 2017-05-21 10:36 | Surgery Progress Note ---
Surgery Progress Note Date of Service May 21, 2017. Subjective Feels better. Tolerating diet. Had a bowel movement with a small amount of blood only. H/H stable. Objective Vital Signs: Date Time Temp Pulse Resp B/P (MAP) Pulse Ox O2 Delivery O2 Flow Rate FiO2 05/21/17 08:32 99 Room Air 05/21/17 08:09 36.5 67 16 106/64 (78) 99 Room Air 05/21/17 04:00 99 Room Air 05/21/17 03:49 36.7 59 20 112/70 (84) 97 Room Air 05/20/17 23:59 100 Room Air 05/20/17 23:06 36.7 84 19 135/80 (98) 98 Room Air 05/20/17 20:00 99 Room Air 05/20/17 19:55 37.2 80 16 120/73 (89) 97 Room Air 05/20/17 18:03 95 Room Air 05/20/17 18:03 37.1 101 18 127/84 (98) 95 Room Air 05/20/17 17:55 37.1 101 16 127/84 (98) 95 Room Air 05/20/17 17:32 36.9 79 15 98 05/20/17 16:00 Room Air 05/20/17 16:00 36.9 79 15 119/64 (82) 98 Room Air 05/20/17 15:00 84 15 133/75 (94) 96 Room Air 05/20/17 13:00 94 15 134/82 (99) 97 Room Air 05/20/17 12:00 36.6 89 19 136/69 (91) 97 Room Air 05/20/17 12:00 Room Air General Appearance: WD/WN, no apparent distress Respiratory/Chest: no respiratory distress Cardiovascular: regular rate, rhythm Abdomen: normal bowel sounds, non tender, non distended, soft Laboratory Results: Results Past 24 Hours Test 05/20/17 18:01 05/21/17 05:54 Range/Units White Blood Count 5.31 4.68 4.8-10.8 K/uL Red Blood Count 4.21 3.83 4.7-6.1 M/uL Hemoglobin 12.2 11.0 14.0-18.0 g/dL Hematocrit 34.9 31.7 42-52 % Mean Corpuscular Volume 82.9 82.8 80-100 fL Mean Corpuscular Hemoglobin 29.0 28.7 25-34 pg Mean Corpuscular Hemoglobin Concent 35.0 34.7 32-36 g/dl RDW Standard Deviation 39.4 39.4 36.4-46.3 fL RDW Coefficient of Variation 13.0 13.1 11.5-14.5 % Platelet Count 212 176 130-400 K/uL Mean Platelet Volume 9.4 8.9 7.4-10.4 fL Neutrophils (%) (Auto) 48.2 % Lymphocytes (%) (Auto) 37.6 % Monocytes (%) (Auto) 8.1 % Eosinophils (%) (Auto) 5.3 % Basophils (%) (Auto) 0.4 % Neutrophils # (Auto) 2.25 1.4-6.5 K/uL Lymphocytes # (Auto) 1.76 1.2-3.4 K/uL Monocytes # (Auto) 0.38 0.11-0.59 K/uL Eosinophils # (Auto) 0.25 0-0.5 K/uL Basophils # (Auto) 0.02 0-0.2 K/uL Immature Granulocyte % (Auto) 0.4 % Immature Granulocyte # (Auto) 0.02 0.00-0.02 K/uL Sodium Level 142 136-145 mmol/L Potassium Level 3.7 3.5-5.1 mmol/L Chloride Level 107 98-107 mmol/L Carbon Dioxide Level 28 21-32 mmol/L Anion Gap 7.0 3-11 mmol/L Blood Urea Nitrogen 7 7-18 mg/dl Creatinine 0.89 0.60-1.40 mg/dl Est Creatinine Clear Calc Drug Dose 120.7 ml/min Estimated GFR () 139.7 Estimated GFR (Non- 120.5 BUN/Creatinine Ratio 8.0 10-20 Random Glucose 93 70-99 mg/dl Calcium Level 8.2 8.5-10.1 mg/dl Assessment & Plan 21 yr old man with lower gi bleed likely from small bowel source. H/H stable. MR enterography reviewed - shows a small 1.2 cm lesion in the distal small bowel which could be a AVM, polyp, possible Meckel's although diverticulum not seen. Plan is for capsule endoscopy - scheduled for tomorrow. Would be OK to discharge later this evening if remains stable. if rebleeds, will need to go to OR for exp lap.
--- NOTE | 2017-05-21 14:43 | Discharge Instructions ---
Discharge Instructions Date of Service May 21, 2017. Admission Reason for Admission: Lower Gi Bleed Discharge Discharge Diagnosis / Problem: Lower GI Bleed Discharge Goals Goal(s): Decrease discomfort, Improve function, Increase independence, Improve disease control, Improve nutritional status, Learn about illness, Diagnostic testing, Therapeutic intervention, Screening, Prevent Disease Progression, Specific goals Activity Recommendations Activity Limitations: resume your previous activity . Instructions / Follow-Up Instructions / Follow-Up You presented with bright red blood per rectum. Imaging showed a likely source of bleeding in a lesion within the Small Bowel. You will need further imaging to better locate the lesion. -You should hear from [facility] office tomorrow (05/22/2017) about scheduling Video Capsule Study and follow up appointment. -If you do not hear from them, please call Dr. Pinto's office at [phone] tomorrow (05/22/2017) Call 911 for any of the following: * You have shortness of breath or trouble breathing. * You faint or lose consciousness. * You have chest pain. Return to the emergency department if: * You feel dizzy or are too weak to stand. * Your heart is beating faster than usual. * You vomit blood, or your vomit looks like coffee grounds. * You have increasing blood in your bowel movement. * You have abdominal pain or swelling. Contact your healthcare provider if: * You have bowel movements that are bright red or tarry or black. * You have nausea or are vomiting. * You have questions or concerns about your condition or care. Current Hospital Diet Patient's current hospital diet: Full Liquid Diet Discharge Diet Recommended Diet: Regular Diet Pending Studies Studies pending at discharge: no Medical Emergencies . Who to Call and When: Medical Emergencies: If at any time you feel your situation is an emergency, please call 911 immediately. . Non-Emergent Contact Non-Emergency issues call your: Primary Care Provider, Chemical Process Operator, Surgeon Call Non-Emergent contact if: you have a fever, your pain is not controlled, your pain is worsening, your pain is unusual for you, your pain is concerning you, you have any medication questions . . "Provider Documentation" section prepared by Yordan Caraballo. . VTE Core Measure Inpt VTE Proph given/why not?: SCD's, Contraindicated
--- NOTE | 2017-05-21 14:47 | Discharge Summary ---
Discharge Summary Date of Service May 21, 2017. (Yordan Caraballo MD) Discharge Summary Admission Date: May 19, 2017 at 05:33 Discharge Date: May 21, 2017 Discharge Disposition: Home Principal Diagnosis: Lower GI Bleed Immunizations: Have You Had Influenza Vaccine: Unknown History of Tetanus Vaccine?: Unknown History of Pneumococcal: Unknown History of Hepatitis B Vaccine: Unknown Procedures: ABD/PELVIS IV CONTRAST ONLY CLINICAL HISTORY: 21 years-old Male presenting with GI bleed and lower abd pain. TECHNIQUE: Multidetector CT of the abdomen and pelvis was performed after the administration of intravenous contrast. IV contrast: 93 mL of Optiray 320. A dose lowering technique was used consistent with the principles of ALARA (as low as reasonably achievable). COMPARISON: None. CT DOSE (mGy.cm): The estimated cumulative dose is 303.89 mGy.cm. FINDINGS: Commercial Correspondent topogram: Unremarkable. Lung bases: Lung bases clear. Normal heart size. No pericardial or pleural effusion. Liver: Normal morphology. Density suggestive of hepatic steatosis. Patent hepatic vasculature. Biliary: No intrahepatic or extrahepatic biliary ductal dilatation. Normal gallbladder. Pancreas: Normal. Spleen: Normal. Splenules noted. Adrenal glands: Normal. Kidneys and ureters: Normal. No hydronephrosis. Bladder: Normal. Pelvic organs: Prostate and seminal vesicles normal. Bowel: Hyperdense material noted within the distal small bowel with a potential polypoid focus along the small bowel wall is silhouetted by the presumed extravasated intraluminal IV contrast (series 3 image 271). This polypoid focus measures 1.8 x 0.9 cm. Normal appendix. No bowel obstruction. Peritoneal cavity: No free fluid or intraperitoneal gas. Lymph nodes: No enlarged lymph nodes in the abdomen or pelvis. Vasculature: Aorta and IVC patent and normal in caliber. Abdominal wall: Normal. Musculoskeletal: Normal. IMPRESSION: 1. Findings concerning for distal small bowel gastrointestinal hemorrhage. A potential polypoid focus along the small bowel wall is silhouetted by the extravasated intraluminal contrast. This raises concern for an underlying lesion. Further evaluation with capsule endoscopy versus CT or MR enterography. The report will be called/faxed according to standard departmental protocol. [~ rep ct add3]] ENTEROGRAPHY ABD/PELVIS COMBO CLINICAL HISTORY: Small bowel lesion on CT. GI bleed. COMPARISON STUDY: CT of the abdomen and pelvis May 19, 2017 at 1:57 AM. TECHNIQUE: Utilizing 1.5 Monica magnet, multiplanar, multiecho imaging of the abdomen and pelvis was performed pre and postcontrast administration with dynamic enhancement. Injection of 7.5 cc of Gadavist IV was uneventful. 1 mg of glucagon was administered IM. FINDINGS: The liver, spleen, adrenal glands, kidneys and pancreas are normal. There is no biliary or pancreatic ductal dilatation. There is no hydronephrosis. There is no evidence for a bowel obstruction. The caliber of small and large bowel is normal. Note is made of a 1.2 x 1.2 cm round hypervascular focus on postcontrast images within the small bowel of the right lower quadrant, within the distal ileum shown best on axial image 36 of 120. This corresponds to the abnormality on prior CT. No additional abnormalities are identified on since examination. Terminal ileum and appendix are normal. Skeletal structures are unremarkable. IMPRESSION: 1.2 x 1.2 cm round hypervascular focus within the small bowel of the right lower quadrant, likely within the distal ileum. This corresponds to the abnormality on prior CT and suggests a small bowel lesion and could account for GI bleeding. Differential considerations include a Meckel's diverticulum, vascular malformation or neoplasm. (Yordan Caraballo MD) Medication Reconciliation Medication Profile: No Active Prescriptions or Reported Meds Discharge Exam Review of Systems: Constitutional: No fever, No chills, No weakness Respiratory: No cough, No shortness of breath Cardiovascular: No chest pain, No edema, No palpitations Abdomen: No pain, No nausea, No vomiting Genitourinary - Male: No hematuria, No urinary frequency, No urinary urgency Integumentary: No rash, No itch Physical Exam: General Appearance: WD/WN, no apparent distress Eyes: PERRL, EOMI, sclerae normal Neck: supple, no adenopathy, trachea midline Respiratory/Chest: lungs clear, normal breath sounds, no respiratory distress Cardiovascular: regular rate, rhythm, no murmur Abdomen / GI: non tender, soft, no organomegaly Extremities: no calf tenderness, no pedal edema Neurologic/Psychiatric: alert, normal mood/affect, oriented x 3 Skin: normal color, warm/dry (Yordan Caraballo MD) slight rectal bleeding this am no abdominal pain Review of Systems: Constitutional: No fever Respiratory: No shortness of breath Cardiovascular: No chest pain Physical Exam: General Appearance: no apparent distress Respiratory/Chest: lungs clear, no respiratory distress Cardiovascular: regular rate, rhythm Abdomen / GI: normal bowel sounds, non tender, soft Neurologic/Psychiatric: alert, oriented x 3 Skin: warm/dry (Janessa Espinoza M.D.) Hospital Course H&P Patient is a 21-year-old [employer] who presented to the emergency department this evening after an acute onset of multiple episodes of bloody diarrhea. He reports that he developed the sensation of urgency for bowel movement at approximate 7 PM, and by 9 PM, he had had his first bloody bowel movement. He reports that he since had multiple diarrheal bowel movements which have all consisted primarily of blood. He does associate the urge to move his bowels, but denies any significant pain otherwise. On initial assessment in the emergency department, he was found to have an H&H of 15.2 and 44.2. He was hydrated with lactated Ringer's and normal saline. During his stay, however, the patient had multiple bloody bowel movements which was certainly concerning to staff. A repeat H&H was obtained, and in the interim, the patient had an episode of orthostasis with a systolic blood pressure in the 60s. The patient became severely lightheaded and nearly passed out. His repeat H&H had dropped to 11.2 and 33, respectively. Patient had been started on a drip and bolus of Protonix. He has [address] abdomen and pelvis demonstrated no significant findings otherwise. On evaluation, the patient is laying flat on the litter. He reports that he takes no daily medications. There is been no recent NSAID use. He reports that he rarely drinks alcohol. He does not smoke. He reports no prior history of GI bleeds. He does admit that he eats a significant amount of spicy food. He reports that approximately 1.5-2 weeks ago the patient had ongoing sensation of "acid" in his stomach. He took no medications or [id number] interventions for this. The symptoms did seem to resolve. The patient has had no vomiting. There is been no black/tarry stools. He denies any previous abdominal surgeries. Patient last had a meal last evening which was a burrito from [employer]. He denies any recent long distance travel, consumption of raw /undercooked foods, recent antibiotic use, or drinking from poor water sources. He denies any receptive rectal penetration. There is no family history of bleeding dyscrasias. He denies any chest pain, palpitations, shortness of breath, nausea, coffee-ground emesis, hematemesis, headaches, fevers, chills, or recent illnesses. Course: IN the ED, He was given IV fluids and 2 units of PRBCs and admitted directly to ICU for further management. Upon admission directly to critical care unit, patient's vital signs were stable, CBC showed mildly decreasing Hgb from (14.6 --> 11.20) without leukocytosis. Coagulation studies were unremarkable. C Diff was negative.CT abdomen/pelvis had findings concerning for distal small bowel gastrointestinal hemorrhage including a potenital polypoid focus along the small bowel wall.HE was initially placed on Protnix and Octreotide drip, though Octreotide was later stopped based on CT findings. Following consult with Gastroenterology MR enterogrpahy was ordered showing 1.2 x 1.2 cm round hypervascular focus within the small bowel of the right lower quadrant likely within the distal ileum. It was eventually determined that based on the lesion' s location, Colonoscopy would not be able to reach it. Surgery was consulted. DUrint the hospital course bleeding resolved and patient was transferred to the medical floor. It was determined that a capsule endoscopy outpatient would be appropriate for localizing the lesion prior to surgical intervention. After showin clinical improvement, patient was discharged with GI followup. Total Time Spent: Less than 30 minutes This includes examination of the patient, discharge planning, medication reconciliation, and communication with other providers. (Yordan Caraballo MD) Resident Physician Supervision Note: I independently interviewed and examined the patient and verified the ott history and physical, reviewed labs and image studies, discussed the case with the resident Dr. Farr and agree with the findings and care plan. Total Time Spent: Greater than 30 minutes (35) (Janessa Espinoza M.D.) Discharge Instructions Please refer to the electronic Patient Visit Report (Discharge Instructions) for additional information. (Yordan Caraballo MD) Follow-Up Gastroenterology (Yordan Caraballo MD) Additional Copies To Keara Monzon MD; Kelsey Booth DO; [facility]
== END 2017-05-21 17:45 | disposition home or self-care (01) | DRG 394 ==
LOC: C.EDB 00:42 → C.MSICU 05:33 → ENRESERV 05:42 → CANBEDREQ 05-20 15:48 → C.2T 05-20 17:54
PROVIDERS: ADMIT Hospitalist; ATTEND Family Medicine
DX: D13.30 Benign neoplasm of unspecified part of small intestine (principal); K92.1 Melena; D62 Acute posthemorrhagic anemia; Z83.3 Family history of diabetes mellitus; I95.9 Hypotension, unspecified; R00.1 Bradycardia, unspecified; I95.1 Orthostatic hypotension